=== PATIENT | female | born 1975 | race Two or more races ===

== ENCOUNTER 2020-08-15 10:11 | Inpatient (IN) | payer SELFPAY ==
[2020-08-15] VITALS (10 sets, daily range): BP systolic 117–149; BP diastolic 63–79
[~2020-08-15] VITALS: Ht 162.6 cm; Wt 59.5 kg
--- NOTE | 2020-08-15 11:32 | RAD ---
EXAMINATION: US PELVIS W/TV, 08/15/2020 10:53 AM CLINICAL INDICATION: Heavy vaginal TECHNIQUE: Grayscale, color and spectral Doppler ultrasound images of the pelvis via transabdominal a nd transvaginal approach. COMPARISON: None. FINDINGS: The uterus measures 11.1 x 5.7 x 5.3 cm and is retroverted. The endometrial stripe measures 10 mm in thickness, within normal limits in a premenopausal woman. There are at least 2 myometrial masses in t he fundus consistent with fibroids, one measuring 2.3 x 1.9 x 1.6 cm and the other measuring 1.7 x 1. 5 x 1.1 cm. The right ovary measures 2.8 x 1.3 x 1.3 cm. The left ovary measures 3.7 x 2.4 x 2.3 cm. There is nor mal ovarian blood flow bilaterally. There are anechoic physiologic cysts in the left ovary measuring up to 1.5 cm. No adnexal mass or free fluid. IMPRESSION: At least 2 fibroids in the uterus, the largest measuring 2.3 cm. Electronically signed by: Lucia Romero MD (08/15/2020 11:29 AM) [id number]
[2020-08-15 11:41] LABS: CALCIUM 8.5 mg/dL (8.5-10.1); CREATININE 0.8 mg/dL (0.6-1.0); GFR 77.6; POTASSIUM 3.8 mmol/L (3.5-5.1)
[2020-08-15 11:47] LABS: ALBUMIN 4.3 g/dL (3.4-5.0); ALBUMIN/GLOBULIN RATIO 1.3 (1.0-1.7); TOTAL BILIRUBIN 0.4 mg/dL (0.2-1.0); TOTAL PROTEIN 7.6 g/dL (6.4-8.2)
[2020-08-15 11:56] LABS: BASO % 1 % (0-3); EOS # 0.4 x10^3/uL (0.0-0.7); EOS % 6 % (0-3); HEMATOCRIT 23.6 % (36.0-47.0); LYMPH # 1.9 x10^3/uL (1.0-4.8); LYMPH % 28 % (24-48); MEAN CORPUSCULAR HEMOGLOBIN 13 pg (25-35); MEAN CORPUSCULAR HGB CONC 27 g/dL (31-37); MEAN CORPUSCULAR VOLUME 49 fL (79-100); MONO # 0.5 x10^3/uL (0.0-1.1); MONO % 7 % (0-9); NEUT # 4.1 x10^3/uL (1.8-7.7); NEUT % 59 % (31-73); PLATELET COUNT 314 x10^3/uL (140-400); RED BLOOD COUNT 4.84 x10^6/uL (3.50-5.40); RED CELL DISTRIBUTION WIDTH 21.4 % (11.5-14.5); WHITE BLOOD COUNT 6.9 x10^3/uL (4.0-11.0)
[2020-08-15 11:59] LABS: HEMOGLOBIN 6.4 g/dL (12.0-15.5)
--- NOTE | 2020-08-15 12:01 | PHYS DOC ---
Past Medical History Past Medical History: No Pertinent History Past Surgical History: No Surgical History Smoking Status: Never Smoker Alcohol Use: None General Adult EDM: Chief Complaint: ABNORMAL LABS HPI: HPI: Patient is a 44 year old female with no significant medical history presents to the ED today for anemia. Patient was evaluated at a local clinic for dizziness and heavy bleeding last week. Her hemoglobin on August 09, 2020 was 6.5 with hematocrit of 24.8. It was repeated on 12/11/2020 and was noted to be 6.2 with hematocrit of 24.1. Patient reports heavy bleeding for years that has gotten worse. Her menstrual cycle began August 12, 2020 and she is still bleeding. Denies any abdominal pain. Denies any nausea vomiting. Patient desires to have transfusion from a family member which I informed her is not possible in the ED setting Patient is English-speaking only and interpretation was provided by the catheter Review of Systems: Review of Systems: Constitutional: Denies fever or chills. [] Eyes: Denies change in visual acuity. [] HENT: Denies nasal congestion or sore throat. [] Respiratory: Denies cough or shortness of breath. [] Cardiovascular: Denies chest pain or edema. [] GI: Reports heavy bleeding. Denies abdominal pain, nausea, vomiting, bloody stools or diarrhea. [] : Denies dysuria. [] Musculoskeletal: Denies back pain or joint pain. [] Integument: Denies rash. [] Neurologic: Denies headache, focal weakness or sensory changes. [] Psychiatric: Denies depression or anxiety. [] Heart Score: C/O Chest Pain: N/A Risk Factors: Risk Factors: DM, Current or recent (<one month) smoker, HTN, HLP, family history of CAD, obesity. Risk Scores: Score 0 - 3: 2.5% MACE over next 6 weeks - Discharge Home Score 4 - 6: 20.3% MACE over next 6 weeks - Admit for Clinical Observation Score 7 - 10: 72.7% MACE over next 6 weeks - Early Invasive Strategies Allergies: Allergies: Allergies Coded Allergies Type Severity Reaction Last Updated Verified No Known Drug Allergies 08/15/20 No Physical Exam: PE: Constitutional: Well developed, well nourished, no acute distress, non-toxic appearance. [] HENT: Normocephalic, atraumatic, bilateral external ears normal, oropharynx moist, no oral exudates, nose normal. [] Eyes: PERRLA, EOMI, conjunctiva normal, no discharge. [] Neck: Normal range of motion, no tenderness, supple, no stridor. [] Cardiovascular:Heart rate regular rhythm, no murmur [] Lungs & Thorax: Bilateral breath sounds clear to auscultation [] Abdomen: Bowel sounds normal, soft, no tenderness, no masses, no pulsatile masses. [] Skin: Warm, dry, no erythema, no rash. [] Back: No tenderness, no CVA tenderness. [] Extremities: No tenderness, no cyanosis, no clubbing, ROM intact, no edema. [] Neurologic: Alert and oriented X 3, normal motor function, normal sensory funct ion, no focal deficits noted. [] Psychologic: Affect normal, judgement normal, mood normal. [] Current Patient Data: Labs: Laboratory Tests Test 08/15/20 11:11 08/15/20 11:15 POC Urine HCG, Qualitative Hcg negative (Negative) Sodium Level 143 mmol/L (136-145) Potassium Level 3.8 mmol/L (3.5-5.1) Chloride Level 107 mmol/L (98-107) Carbon Dioxide Level 25 mmol/L (21-32) Anion Gap 11 (6-14) Blood Urea Nitrogen 9 mg/dL (7-20) Creatinine 0.8 mg/dL (0.6-1.0) Estimated GFR (Cockcroft-Gault) 77.6 BUN/Creatinine Ratio 11 (6-20) Glucose Level 106 mg/dL (70-99) H Calcium Level 8.5 mg/dL (8.5-10.1) Total Bilirubin 0.4 mg/dL (0.2-1.0) Aspartate Amino Transferase (AST) 6 U/L (15-37) L Alanine Aminotransferase (ALT) 16 U/L (14-59) Alkaline Phosphatase 79 U/L (46-116) Total Protein 7.6 g/dL (6.4-8.2) Albumin 4.3 g/dL (3.4-5.0) Albumin/Globulin Ratio 1.3 (1.0-1.7) Laboratory Tests 08/15/20 11:15 Vital Signs: Vital Signs Date Time Temp Pulse Resp B/P (MAP) Pulse Ox O2 Delivery O2 Flow Rate FiO2 08/15/20 10:35 98.2 89 22 132/63 (86) 100 Room Air 98.2 EKG: EKG: [] Radiology/Procedures: Radiology/Procedures: []PROCEDURE: PELVIS W/TV EXAMINATION: US PELVIS W/TV, 08/15/2020 10:53 AM CLINICAL INDICATION: Heavy vaginal TECHNIQUE: Grayscale, color and spectral Doppler ultrasound images of the pelvis via transabdominal and transvaginal approach. COMPARISON: None. FINDINGS: The uterus measures 11.1 x 5.7 x 5.3 cm and is retroverted. The endometrial stripe measures 10 mm in thickness, within normal limits in a premenopausal woman. There are at least 2 myometrial masses in the fundus consistent with fib roids, one measuring 2.3 x 1.9 x 1.6 cm and the other measuring 1.7 x 1.5 x 1.1 cm. The right ovary measures 2.8 x 1.3 x 1.3 cm. The left ovary measures 3.7 x 2.4 x 2.3 cm. There is normal ovarian blood flow bilaterally. There are anechoic physiologic cysts in the left ovary measuring up to 1.5 cm. No adnexal mass or free fluid. IMPRESSION: At least 2 fibroids in the uterus, the largest measuring 2.3 cm. Electronically signed by: Lucia Romero MD (08/15/2020 11:29 AM) [id number] DICTATED and SIGNED BY: LUCIA ROMERO MD DATE: 08/15/20 [id number] 0 Course & Med Decision Making: Course & Med Decision Making Pertinent Labs and Imaging studies reviewed. (See chart for details) This is a 44-year-old female patient presenting to the ED today for anemia. Hemoglobin was 6.2 with hematocrit of 24.1 on August 11, 2020. Heavy bleeding as the source of her anemia. Pelvic ultrasound noted for uterine fibroids Hemoglobin today is 6.4 with HCT 23.6 blood transfusion ordered. Spoke with Dr. Balderas who accepted patient for admission Routine consult placed for [employer] MANAGER Enrique Disclaimer: Enrique Disclaimer: This electronic medical record was generated, in whole or in part, using a voice recognition dictation system. Departure Departure Impression: Primary Impression: Anemia Qualified Codes: D50.0 - Iron deficiency anemia secondary to blood loss (chronic) Additional Impression: Fibroids Disposition: 09 ADMITTED INPATIENT Condition: STABLE Referrals: NO PCP (PCP) PILLO GE APRN Aug 15, 2020 12:01
[2020-08-15 12:12] LABS: BILIRUBIN,URINE NEGATIVE (NEG); CLARITY,URINE CLEAR; COLOR,URINE YELLOW; NITRITE,URINE NEGATIVE (NEG); PROTEIN,URINE NEGATIVE (NEG-TRACE)
[2020-08-15 12:21] LABS: RBC,URINE TNTC /HPF (0-2); WBC,URINE OCC /HPF (0-4)
[2020-08-15 12:22] LABS: BACTERIA,URINE 0 /HPF (0-FEW)
[2020-08-15] MEDS ORDERED: ONDANSETRON PF 4 MG/2 ML VIAL. IV PRN (13:00)
[2020-08-15] MEDS ORDERED: ACETAMINOPHEN 325 MG TABLET. PO PRN ×2 (13:00→13:45)
[2020-08-15] MEDS ORDERED: MORPHINE SULFATE 2 MG/ML VIAL. IV PRN (13:45)
[2020-08-15] MEDS ORDERED: CALCIUM CARBONATE 500 MG TAB.CHEW PO PRN (13:45)
[2020-08-15] MEDS ORDERED: MAG HYDROX/ALUMINUM HYD/SIMETH 30 ML ORAL.SUSP PO PRN (13:45)
[2020-08-15] MEDS ORDERED: ZOLPIDEM 5 MG TABLET. PO PRN (13:45)
[2020-08-15] MEDS ORDERED: MAGNESIUM HYDROXIDE 2,400 MG/30 ML ORAL.SUSP. PO PRN (13:45)
[2020-08-15] MEDS ORDERED: BISACODYL 10 MG SUPP.RECT. PR PRN (13:45)
[2020-08-15] MEDS ORDERED: ONDANSETRON PF 4 MG/2 ML VIAL. IVP PRN (13:45)
[2020-08-15 13:47] LABS: ANISOCYTOSIS MOD; BIZZARE CELLS FEW; HYPOCHROMIA MARKED; MICROCYTOSIS MARKED; OVALOCYTES MOD; PLT ESTIMATE ADEQUATE (ADEQUATE); POLYCHROMASIA SLIGHT; TEAR DROP CELLS FEW
--- NOTE | 2020-08-15 13:54 | PDOC1 ---
History and Physical Date of Admission Date of Admission DATE: 08/15/20 TIME: 13:46 Identification/Chief Complaint Chief Complaint Anemia Source Source: Chart review, Patient History of Present Illness History of Present Illness Patient is a 44-year-old female with past medical history uterine fibroids, dysfunctional uterine bleeding, who presents to the ED due to concerns of anemia. She was evaluated by a local clinic due to heavy bleeding last week. At that time labs reportedly showed hemoglobin 6.5 and hematocrit 24.8. Patient has heavy vaginal bleeding over several years. Her menstrual cycle began 08/12/2020 and she states she is still having vaginal bleeding. She denies any abdominal pain, nausea, or vomiting. Patient is Kazakh-speaking only. Will admit for further medical management. Past Medical History Past Medical History Dysfunctional uterine bleeding, uterine fibroids, anemia Past Surgical History Past Surgical History Reviewed with patient but denies any surgical history Family History Family History Reviewed with patient but denies any significant family history Social History Smoke: No ALCOHOL: none Drugs: None Current Problem List Problem List Problems Medical Problems: (1) Anemia Status: Acute (2) Fibroids Status: Acute Current Medications Current Medications Current Medications Ondansetron HCl (Zofran) 4 mg PRN Q8HRS PRN IV NAUSEA/VOMITING; Start 08/15/20 at 13:00; Stop 08/16/20 at 12:59 Acetaminophen (Tylenol) 650 mg PRN Q4HRS PRN PO FEVER > 100.3'F; Start 08/15/20 at 13:00; Stop 08/16/20 at 12:59 Allergies Allergies: Coded Allergies: No Known Drug Allergies (Unverified , 08/15/20) ROS Review of System GENERAL: No history of weight change, weakness or fevers. SKIN: No bruising, hair changes or rashes. EYES: No blurred, double or loss of vision. NOSE AND THROAT: No history of nosebleeds, hoarseness or sore throat. HEART: Denies chest pain, denies palpitations. LUNGS: Denies cough, hemoptysis, wheezing or shortness of breath. GASTROINTESTINAL: Denies nausea, vomiting, abdominal pain. GENITOURINARY: Vaginal bleeding. Denies dysuria, frequency, urgency, hematuria. NEUROLOGIC: Denies history of numbness, tingling, tremor or weakness. PSYCHIATRIC: Denies anxiety, denies depression. ENDOCRINE: No history of heat or cold intolerance, polyuria or polydipsia. EXTREMITIES: Denies muscle weakness, joint pain, pain on walking or stiffness. Physical Exam Physical Exam General: Alert, Oriented X3, Cooperative, No acute distress HEENT: PERRLA, EOMI Lungs: Clear to auscultation, Normal air movement Heart: RRR, no murmurs Cardiovascular: S1, S2 Abdomen: Normal bowel sounds, Soft, No tenderness Extremities: No clubbing, No cyanosis Skin: No rashes, No significant lesion Neuro: Normal speech, Normal tone, Sensation intact Psych/Mental Status: Mental status NL, Mood NL Vitals Vitals Vital Signs Date Time Temp Pulse Resp B/P (MAP) Pulse Ox O2 Delivery O2 Flow Rate FiO2 08/15/20 10:35 98.2 89 22 132/63 (86) 100 Room Air 98.2 Labs Labs Laboratory Tests Test 08/15/20 11:03 08/15/20 11:11 08/15/20 11:15 Urine Collection Type Unknown Urine Color Yellow Urine Clarity Clear Urine pH 6.0 (<5.0-8.0) Urine Specific [place] 1.015 (1.000-1.030) Urine Protein Negative mg/dL (NEG-TRACE) Urine Glucose (UA) Negative mg/dL (NEG) Urine Ketones (Stick) Negative mg/dL (NEG) Urine Blood Large (NEG) Urine Nitrite Negative (NEG) Urine Bilirubin Negative (NEG) Urine Urobilinogen Dipstick 1.0 mg/dL (0.2 mg/dL) Urine Leukocyte Esterase Trace (NEG) Urine RBC Tntc /HPF (0-2) Urine WBC Occ /HPF (0-4) Urine Bacteria 0 /HPF (0-FEW) Bedside Urine HCG, Qualitative Hcg negative (Negative) White Blood Count 6.9 x10^3/uL (4.0-11.0) Red Blood Count 4.84 x10^6/uL (3.50-5.40) Hemoglobin 6.4 g/dL (12.0-15.5) Hematocrit 23.6 % (36.0-47.0) Mean Corpuscular Volume 49 fL (79-100) Mean Corpuscular Hemoglobin 13 pg (25-35) Mean Corpuscular Hemoglobin Concent 27 g/dL (31-37) Red Cell Distribution Width 21.4 % (11.5-14.5) Platelet Count 314 x10^3/uL (140-400) Neutrophils (%) (Auto) 59 % (31-73) Lymphocytes (%) (Auto) 28 % (24-48) Monocytes (%) (Auto) 7 % (0-9) Eosinophils (%) (Auto) 6 % (0-3) Basophils (%) (Auto) 1 % (0-3) Neutrophils # (Auto) 4.1 x10^3/uL (1.8-7.7) Lymphocytes # (Auto) 1.9 x10^3/uL (1.0-4.8) Monocytes # (Auto) 0.5 x10^3/uL (0.0-1.1) Eosinophils # (Auto) 0.4 x10^3/uL (0.0-0.7) Basophils # (Auto) 0.0 x10^3/uL (0.0-0.2) Sodium Level 143 mmol/L (136-145) Potassium Level 3.8 mmol/L (3.5-5.1) Chloride Level 107 mmol/L (98-107) Carbon Dioxide Level 25 mmol/L (21-32) Anion Gap 11 (6-14) Blood Urea Nitrogen 9 mg/dL (7-20) Creatinine 0.8 mg/dL (0.6-1.0) Estimated GFR (Cockcroft-Gault) 77.6 BUN/Creatinine Ratio 11 (6-20) Glucose Level 106 mg/dL (70-99) Calcium Level 8.5 mg/dL (8.5-10.1) Total Bilirubin 0.4 mg/dL (0.2-1.0) Aspartate Amino Transf (AST/SGOT) 6 U/L (15-37) Alanine Aminotransferase (ALT/SGPT) 16 U/L (14-59) Alkaline Phosphatase 79 U/L (46-116) Total Protein 7.6 g/dL (6.4-8.2) Albumin 4.3 g/dL (3.4-5.0) Albumin/Globulin Ratio 1.3 (1.0-1.7) Laboratory Tests Test 08/15/20 11:03 08/15/20 11:11 08/15/20 11:15 Urine Collection Type Unknown Urine Color Yellow Urine Clarity Clear Urine pH 6.0 (<5.0-8.0) Urine Specific [place] 1.015 (1.000-1.030) Urine Protein Negative mg/dL (NEG-TRACE) Urine Glucose (UA) Negative mg/dL (NEG) Urine Ketones (Stick) Negative mg/dL (NEG) Urine Blood Large (NEG) Urine Nitrite Negative (NEG) Urine Bilirubin Negative (NEG) Urine Urobilinogen Dipstick 1.0 mg/dL (0.2 mg/dL) Urine Leukocyte Esterase Trace (NEG) Urine RBC Tntc /HPF (0-2) Urine WBC Occ /HPF (0-4) Urine Bacteria 0 /HPF (0-FEW) Bedside Urine HCG, Qualitative Hcg negative (Negative) White Blood Count 6.9 x10^3/uL (4.0-11.0) Red Blood Count 4.84 x10^6/uL (3.50-5.40) Hemoglobin 6.4 g/dL (12.0-15.5) Hematocrit 23.6 % (36.0-47.0) Mean Corpuscular Volume 49 fL (79-100) Mean Corpuscular Hemoglobin 13 pg (25-35) Mean Corpuscular Hemoglobin Concent 27 g/dL (31-37) Red Cell Distribution Width 21.4 % (11.5-14.5) Platelet Count 314 x10^3/uL (140-400) Neutrophils (%) (Auto) 59 % (31-73) Lymphocytes (%) (Auto) 28 % (24-48) Monocytes (%) (Auto) 7 % (0-9) Eosinophils (%) (Auto) 6 % (0-3) Basophils (%) (Auto) 1 % (0-3) Neutrophils # (Auto) 4.1 x10^3/uL (1.8-7.7) Lymphocytes # (Auto) 1.9 x10^3/uL (1.0-4.8) Monocytes # (Auto) 0.5 x10^3/uL (0.0-1.1) Eosinophils # (Auto) 0.4 x10^3/uL (0.0-0.7) Basophils # (Auto) 0.0 x10^3/uL (0.0-0.2) Sodium Level 143 mmol/L (136-145) Potassium Level 3.8 mmol/L (3.5-5.1) Chloride Level 107 mmol/L (98-107) Carbon Dioxide Level 25 mmol/L (21-32) Anion Gap 11 (6-14) Blood Urea Nitrogen 9 mg/dL (7-20) Creatinine 0.8 mg/dL (0.6-1.0) Estimated GFR (Cockcroft-Gault) 77.6 BUN/Creatinine Ratio 11 (6-20) Glucose Level 106 mg/dL (70-99) Calcium Level 8.5 mg/dL (8.5-10.1) Total Bilirubin 0.4 mg/dL (0.2-1.0) Aspartate Amino Transf (AST/SGOT) 6 U/L (15-37) Alanine Aminotransferase (ALT/SGPT) 16 U/L (14-59) Alkaline Phosphatase 79 U/L (46-116) Total Protein 7.6 g/dL (6.4-8.2) Albumin 4.3 g/dL (3.4-5.0) Albumin/Globulin Ratio 1.3 (1.0-1.7) Images Images PELVIS W/TV EXAMINATION: US PELVIS W/TV, 08/15/2020 10:53 AM CLINICAL INDICATION: Heavy vaginal TECHNIQUE: Grayscale, color and spectral Doppler ultrasound images of the pelvis via transabdominal and transvaginal approach. COMPARISON: None. FINDINGS: The uterus measures 11.1 x 5.7 x 5.3 cm and is retroverted. The endometrial stripe measures 10 mm in thickness, within normal limits in a premenopausal woman. There are at least 2 myometrial masses in the fundus consistent with fibroids, one measuring 2.3 x 1.9 x 1.6 cm and the other measuring 1.7 x 1.5 x 1.1 cm. The right ovary measures 2.8 x 1.3 x 1.3 cm. The left ovary measures 3.7 x 2.4 x 2.3 cm. There is normal ovarian blood flow bilaterally. There are anechoic physiologic cysts in the left ovary measuring up to 1.5 cm. No adnexal mass or free fluid. IMPRESSION: At least 2 fibroids in the uterus, the largest measuring 2.3 cm. VTE Prophylaxis Ordered VTE Prophylaxis Devices: Yes VTE Pharmacological Prophylaxi: No Assessment/Plan Assessment/Plan Dysfunctional uterine bleeding Acute on chronic blood loss anemia Uterine fibroids Plan: Packed red blood cells ordered in the ER. Will follow up on hemoglobin after transfusion and and transfuse as needed for hemoglobin <7. Consultations placed to [facility] [employer] INTERPRETER Supportive care Once stable she may discharge to follow-up outpatient with [facility] [employer] FEN - Cardiac diet PPX - SCDs FULL CODE Dispo - inpatient for above Justifications for Admission Other Justification MARILYN CHAVEZ MD Aug 15, 2020 13:54
--- NOTE | 2020-08-15 16:36 | PDOC2 ---
CONSULT Date of Consult Date of Consult DATE: 08/15/20 TIME: 16:35 Reason for Consult Reason for Consult: Anemia, Fibroids History of Present Illness Reason for Visit: 44y who presented to the ER with dizziness and heavy bleeding for a wk. The pt went to the [facility] this weekend. After her CBC returned they advised her to go to the ER b/c of her anemia. She has had heavy periods for yrs. She has never attempted any tx in the past. She also states that she often has nausea and HAs with her cycyles. Her current period began 3 days ago and is still heavy. In the ER a her Hgb returned at 6.4. She underwent an u/s revealing the following: The uterus measures 11.1 x 5.7 x 5.3 cm and is retroverted. The endometrial stripe measures 10 mm in thickness, within normal limits in a premenopausal woman. There are at least 2 myometrial masses in the fundus consistent with fibroids, one measuring 2.3 x 1.9 x 1.6 cm and the other measuring 1.7 x 1.5 x 1.1 cm. PMH: Denies PSH: Denies Meds: None All: NKDA OBHx: 2 x TSVD, 1 x TSVD (twins) Crystal Slicer: LMP 08/12/20 BTL in 2001 H/o Depo use for ~1yr 12yo / regular SH: no tob, no EtOH FH: mother asthma Social History No ALCOHOL: none Drugs: None Current Problem List Problem List Problems Medical Problems: (1) Anemia Status: Acute (2) Fibroids Status: Acute Current Medications Current Medications Current Medications Ondansetron HCl (Zofran) 4 mg PRN Q8HRS PRN IV NAUSEA/VOMITING; Start 08/15/20 at 13:00; Stop 08/16/20 at 12:59 Acetaminophen (Tylenol) 650 mg PRN Q4HRS PRN PO FEVER > 100.3'F; Start 08/15/20 at 13:00; Stop 08/16/20 at 12:59 Ondansetron HCl (Zofran) 4 mg PRN Q6HRS PRN IVP NAUSEA/VOMITING; Start 08/15/20 at 13:45 Al Hydroxide/Mg Hydroxide (Mylanta Plus Xs) 30 ml PRN Q3HRS PRN PO HEARTBURN / GAS; Start 08/15/20 at 13:45 Calcium Carbonate/ Glycine (Tums) 500 mg PRN Q3HRS PRN PO UPSET STOMACH; Start 08/15/20 at 13:45 Zolpidem Tartrate (Ambien) 5 mg PRN QHS PRN PO INSOMNIA, MAY REPEAT IN 1HR; Start 08/15/20 at 13:45 Morphine Sulfate (Morphine Sulfate) 2 mg PRN Q1HR PRN IV PAIN; Start 08/15/20 at 13:45 Acetaminophen (Tylenol) 650 mg PRN Q6HRS PRN PO Headaches, Temp > 101.5F; Start 08/15/20 at 13:45 Magnesium Hydroxide (Milk Of Magnesia) 2,400 mg PRN Q12HR PRN PO CONSTIPATION; Start 08/15/20 at 13:45 Bisacodyl (Dulcolax Supp) 10 mg PRN DAILY PRN DC CONSTIPATION; Start 08/15/20 at 13:45 Allergies Allergies: Coded Allergies: No Known Drug Allergies (Unverified , 08/15/20) Physical Exam General: Alert, Oriented X3, Cooperative, No acute distress HEENT: PERRLA, Mucous membr. moist/pink Lungs: Clear to auscultation, Normal air movement Heart: Regular rate, Normal S1, Normal S2, No murmurs Abdomen: Normal bowel sounds, Soft, No tenderness, No hepatosplenomegaly, No masses Extremities: No clubbing, No cyanosis, No edema, Normal pulses, No tenderness/swelling Skin: No rashes, No breakdown Neuro: Normal gait, Normal speech, Normal tone, Sensation intact, Reflexes 2+ Psych/Mental Status: Mental status NL, Mood NL Vitals VITALS Vital Signs Date Time Temp Pulse Resp B/P (MAP) Pulse Ox O2 Delivery O2 Flow Rate FiO2 08/15/20 15:09 98.5 86 18 133/63 98.5 08/15/20 10:35 100 Room Air Labs Labs Laboratory Tests Test 08/15/20 11:03 08/15/20 11:11 08/15/20 11:15 Urine Collection Type Unknown Urine Color Yellow Urine Clarity Clear Urine pH 6.0 (<5.0-8.0) Urine Specific [place] 1.015 (1.000-1.030) Urine Protein Negative mg/dL (NEG-TRACE) Urine Glucose (UA) Negative mg/dL (NEG) Urine Ketones (Stick) Negative mg/dL (NEG) Urine Blood Large (NEG) Urine Nitrite Negative (NEG) Urine Bilirubin Negative (NEG) Urine Urobilinogen Dipstick 1.0 mg/dL (0.2 mg/dL) Urine Leukocyte Esterase Trace (NEG) Urine RBC Tntc /HPF (0-2) Urine WBC Occ /HPF (0-4) Urine Bacteria 0 /HPF (0-FEW) Bedside Urine HCG, Qualitative Hcg negative (Negative) White Blood Count 6.9 x10^3/uL (4.0-11.0) Red Blood Count 4.84 x10^6/uL (3.50-5.40) Hemoglobin 6.4 g/dL (12.0-15.5) Hematocrit 23.6 % (36.0-47.0) Mean Corpuscular Volume 49 fL (79-100) Mean Corpuscular Hemoglobin 13 pg (25-35) Mean Corpuscular Hemoglobin Concent 27 g/dL (31-37) Red Cell Distribution Width 21.4 % (11.5-14.5) Platelet Count 314 x10^3/uL (140-400) Neutrophils (%) (Auto) 59 % (31-73) Lymphocytes (%) (Auto) 28 % (24-48) Monocytes (%) (Auto) 7 % (0-9) Eosinophils (%) (Auto) 6 % (0-3) Basophils (%) (Auto) 1 % (0-3) Neutrophils # (Auto) 4.1 x10^3/uL (1.8-7.7) Lymphocytes # (Auto) 1.9 x10^3/uL (1.0-4.8) Monocytes # (Auto) 0.5 x10^3/uL (0.0-1.1) Eosinophils # (Auto) 0.4 x10^3/uL (0.0-0.7) Basophils # (Auto) 0.0 x10^3/uL (0.0-0.2) Platelet Estimate Adequate (ADEQUATE) Large Platelets Few Polychromasia Slight Hypochromasia Marked Basophilic Stippling Present Anisocytosis Mod Microcytosis Marked Macrocytosis Slight Tear Drop Cells Few Ovalocytes Mod RBC Morphology Bizarre Forms Few Sodium Level 143 mmol/L (136-145) Potassium Level 3.8 mmol/L (3.5-5.1) Chloride Level 107 mmol/L (98-107) Carbon Dioxide Level 25 mmol/L (21-32) Anion Gap 11 (6-14) Blood Urea Nitrogen 9 mg/dL (7-20) Creatinine 0.8 mg/dL (0.6-1.0) Estimated GFR (Cockcroft-Gault) 77.6 BUN/Creatinine Ratio 11 (6-20) Glucose Level 106 mg/dL (70-99) Calcium Level 8.5 mg/dL (8.5-10.1) Total Bilirubin 0.4 mg/dL (0.2-1.0) Aspartate Amino Transf (AST/SGOT) 6 U/L (15-37) Alanine Aminotransferase (ALT/SGPT) 16 U/L (14-59) Alkaline Phosphatase 79 U/L (46-116) Total Protein 7.6 g/dL (6.4-8.2) Albumin 4.3 g/dL (3.4-5.0) Albumin/Globulin Ratio 1.3 (1.0-1.7) Laboratory Tests Test 08/15/20 11:03 08/15/20 11:11 08/15/20 11:15 Urine Collection Type Unknown Urine Color Yellow Urine Clarity Clear Urine pH 6.0 (<5.0-8.0) Urine Specific [place] 1.015 (1.000-1.030) Urine Protein Negative mg/dL (NEG-TRACE) Urine Glucose (UA) Negative mg/dL (NEG) Urine Ketones (Stick) Negative mg/dL (NEG) Urine Blood Large (NEG) Urine Nitrite Negative (NEG) Urine Bilirubin Negative (NEG) Urine Urobilinogen Dipstick 1.0 mg/dL (0.2 mg/dL) Urine Leukocyte Esterase Trace (NEG) Urine RBC Tntc /HPF (0-2) Urine WBC Occ /HPF (0-4) Urine Bacteria 0 /HPF (0-FEW) Bedside Urine HCG, Qualitative Hcg negative (Negative) White Blood Count 6.9 x10^3/uL (4.0-11.0) Red Blood Count 4.84 x10^6/uL (3.50-5.40) Hemoglobin 6.4 g/dL (12.0-15.5) Hematocrit 23.6 % (36.0-47.0) Mean Corpuscular Volume 49 fL (79-100) Mean Corpuscular Hemoglobin 13 pg (25-35) Mean Corpuscular Hemoglobin Concent 27 g/dL (31-37) Red Cell Distribution Width 21.4 % (11.5-14.5) Platelet Count 314 x10^3/uL (140-400) Neutrophils (%) (Auto) 59 % (31-73) Lymphocytes (%) (Auto) 28 % (24-48) Monocytes (%) (Auto) 7 % (0-9) Eosinophils (%) (Auto) 6 % (0-3) Basophils (%) (Auto) 1 % (0-3) Neutrophils # (Auto) 4.1 x10^3/uL (1.8-7.7) Lymphocytes # (Auto) 1.9 x10^3/uL (1.0-4.8) Monocytes # (Auto) 0.5 x10^3/uL (0.0-1.1) Eosinophils # (Auto) 0.4 x10^3/uL (0.0-0.7) Basophils # (Auto) 0.0 x10^3/uL (0.0-0.2) Platelet Estimate Adequate (ADEQUATE) Large Platelets Few Polychromasia Slight Hypochromasia Marked Basophilic Stippling Present Anisocytosis Mod Microcytosis Marked Macrocytosis Slight Tear Drop Cells Few Ovalocytes Mod RBC Morphology Bizarre Forms Few Sodium Level 143 mmol/L (136-145) Potassium Level 3.8 mmol/L (3.5-5.1) Chloride Level 107 mmol/L (98-107) Carbon Dioxide Level 25 mmol/L (21-32) Anion Gap 11 (6-14) Blood Urea Nitrogen 9 mg/dL (7-20) Creatinine 0.8 mg/dL (0.6-1.0) Estimated GFR (Cockcroft-Gault) 77.6 BUN/Creatinine Ratio 11 (6-20) Glucose Level 106 mg/dL (70-99) Calcium Level 8.5 mg/dL (8.5-10.1) Total Bilirubin 0.4 mg/dL (0.2-1.0) Aspartate Amino Transf (AST/SGOT) 6 U/L (15-37) Alanine Aminotransferase (ALT/SGPT) 16 U/L (14-59) Alkaline Phosphatase 79 U/L (46-116) Total Protein 7.6 g/dL (6.4-8.2) Albumin 4.3 g/dL (3.4-5.0) Albumin/Globulin Ratio 1.3 (1.0-1.7) Assessment/Plan Assessment/Plan Assessment: 44y with anemia, menorrhagia, and fibroids Recommendations: 1.) Anemia currently receiving a transfusion per hospitalists. Anemia likely 2/2 menorrhagia based on pts hx. 2.) Menorrhagia reports a longstanding hx. Has never attempted medical management. Since currently still bleeding heavy would start Provera 5mg. 3.) Fibroids - ~2 cm in size. 4.) Contraception BTL 5.) Will cont follow DAGO ADAN MD Aug 15, 2020 16:36
[2020-08-15 20:20] LABS: HEMATOCRIT 28.3 % (36.0-47.0); HEMOGLOBIN 8.2 g/dL (12.0-15.5)
[2020-08-16 02:52] VITALS: BP 127/67
[2020-08-16 05:44] LABS: BASO % 0 % (0-3); EOS # 0.4 x10^3/uL (0.0-0.7); EOS % 5 % (0-3); HEMOGLOBIN 8.2 g/dL (12.0-15.5); LYMPH # 2.2 x10^3/uL (1.0-4.8); LYMPH % 29 % (24-48); MEAN CORPUSCULAR HEMOGLOBIN 16 pg (25-35); MEAN CORPUSCULAR HGB CONC 28 g/dL (31-37); MEAN CORPUSCULAR VOLUME 55 fL (79-100); MONO # 0.5 x10^3/uL (0.0-1.1); MONO % 7 % (0-9); NEUT # 4.5 x10^3/uL (1.8-7.7); NEUT % 59 % (31-73); PLATELET COUNT 327 x10^3/uL (140-400); RED BLOOD COUNT 5.25 x10^6/uL (3.50-5.40); RED CELL DISTRIBUTION WIDTH 21.5 % (11.5-14.5); WHITE BLOOD COUNT 7.7 x10^3/uL (4.0-11.0)
[2020-08-16 07:00] VITALS: BP 122/62
--- NOTE | 2020-08-16 10:05 | PDOC ---
PROGRESS NOTES Date of Service: DATE: 08/16/20 TIME: 10:05 Chief Complaint Chief Complaint VTE Prophylaxis Ordered VTE Prophylaxis Devices: Yes VTE Pharmacological Prophylaxi: No Assessment/Plan Assessment/Plan Dysfunctional uterine bleeding Acute on chronic blood loss anemia Uterine fibroids ON us 2 fibroids in the uterus, the largest measuring 2.3 cm. Plan: Packed red blood cells ordered in the ER. Will follow up on hemoglobin after transfusion and and transfuse as needed for hemoglobin <7. Consultations placed to [facility] Once stable she may discharge to follow-up outpatient with [facility] - Cardiac diet PPX - SCDs FULL CODE Dispo - inpatient for above Justifications for Admission Justifications for Admission Other Justification History of Present Illness History of Present Illness Identification/Chief Complaint Chief Complaint Anemia Source Source: Chart review, Patient History of Present Illness History of Present Illness Patient is a 44-year-old female with past medical history uterine fibroids, dysfunctional uterine bleeding, who presents to the ED due to concerns of anemia. She was evaluated by a local clinic due to heavy bleeding last week. At that time labs reportedly showed hemoglobin 6.5 and hematocrit 24.8. Patient has heavy vaginal bleeding over several years. Her menstrual cycle began 08/12/2020 and she states she is still having vaginal bleeding. She denies any abdominal pain, nausea, or vomiting. Patient is Khmer-speaking only. Will admit for further medical management. Past Medical History Past Medical History Dysfunctional uterine bleeding, uterine fibroids, anemia Past Surgical History Past Surgical History Reviewed with patient but denies any surgical history Family History Family History Reviewed with patient but denies any significant family history Social History Smoke: No ALCOHOL: none Drugs: None Current Problem List Problem List Problems Medical Problems: (1) Anemia Status: Acute (2) Fibroids Status: Acute Current Medications Current Medications Current Medications Ondansetron HCl (Zofran) 4 mg PRN Q8HRS PRN IV NAUSEA/VOMITING; Start 08/15/20 at 13:00; Stop 08/16/20 at 12:59 Acetaminophen (Tylenol) 650 mg PRN Q4HRS PRN PO FEVER > 100.3'F; Start 08/15/20 at 13:00; Stop 08/16/20 at 12:59 Allergies Allergies: Coded Allergies: No Known Drug Allergies (Unverified , 08/15/20) ROS Review of System GENERAL: No history of weight change, weakness or fevers. SKIN: No bruising, hair changes or rashes. EYES: No blurred, double or loss of vision. NOSE AND THROAT: No history of nosebleeds, hoarseness or sore throat. HEART: Denies chest pain, denies palpitations. LUNGS: Denies cough, hemoptysis, wheezing or shortness of breath. GASTROINTESTINAL: Denies nausea, vomiting, abdominal pain. GENITOURINARY: Vaginal bleeding. Denies dysuria, frequency, urgency, hematuria. NEUROLOGIC: Denies history of numbness, tingling, tremor or weakness. PSYCHIATRIC: Denies anxiety, denies depression. ENDOCRINE: No history of heat or cold intolerance, polyuria or polydipsia. EXTREMITIES: Denies muscle weakness, joint pain, pain on walking or stiffness. - LESS BLEEDING D/W RN Dysfunctional uterine bleeding Acute on chronic blood loss anemia Uterine fibroids ON us 2 fibroids in the uterus, the largest measuring 2.3 cm. Vitals Vitals Vital Signs Date Time Temp Pulse Resp B/P (MAP) Pulse Ox O2 Delivery O2 Flow Rate FiO2 08/16/20 07:00 97.6 76 17 122/62 (82) 99 Room Air 97.6 Physical Exam General: Alert, Oriented X3, Cooperative, No acute distress Heart: Regular rate, Normal S1, Normal S2, No murmurs Lungs: Clear Abdomen: Normal bowel sounds, Soft, No tenderness, No hepatosplenomegaly, No masses Extremities: No clubbing, No cyanosis, No edema, Normal pulses, No tenderness/swelling Skin: No rashes, No breakdown Labs LABS PATIENT: CARRIE BOBACCOUNT: [id number] : 1975 LOCATION: ER AGE: 44 SEX: F EXAM STATUS: REG ER ORD. PHYSICIAN: PILLO GE APRN REASON: heavy vag bleeding PROCEDURE: PELVIS W/TV EXAMINATION: US PELVIS W/TV, 08/15/2020 10:53 AM CLINICAL INDICATION: Heavy vaginal TECHNIQUE: Grayscale, color and spectral Doppler ultrasound images of the pelvis via transabdominal and transvaginal approach. COMPARISON: None. FINDINGS: The uterus measures 11.1 x 5.7 x 5.3 cm and is retroverted. The endometrial stripe measures 10 mm in thickness, within normal limits in a premenopausal woman. There are at least 2 myometrial masses in the fundus consistent with fibroids, one measuring 2.3 x 1.9 x 1.6 cm and the other measuring 1.7 x 1.5 x 1.1 cm. The right ovary measures 2.8 x 1.3 x 1.3 cm. The left ovary measures 3.7 x 2.4 x 2.3 cm. There is normal ovarian blood flow bilaterally. There are anechoic physiologic cysts in the left ovary measuring up to 1.5 cm. No adnexal mass or free fluid. IMPRESSION: At least 2 fibroids in the uterus, the largest measuring 2.3 cm. Electronically signed by: Lucia Romero MD (08/15/2020 11:29 AM) [id number] DICTATED and SIGNED BY: LUCIA ROMERO MD DATE: 08/15/20 [id number] Laboratory Tests Test 08/15/20 11:03 08/15/20 11:11 08/15/20 11:15 08/15/20 20:05 Urine Collection Type Unknown Urine Color Yellow Urine Clarity Clear Urine pH 6.0 (<5.0-8.0) Urine Specific [place] 1.015 (1.000-1.030) Urine Protein Negative mg/dL (NEG-TRACE) Urine Glucose (UA) Negative mg/dL (NEG) Urine Ketones (Stick) Negative mg/dL (NEG) Urine Blood Large (NEG) Urine Nitrite Negative (NEG) Urine Bilirubin Negative (NEG) Urine Urobilinogen Dipstick 1.0 mg/dL (0.2 mg/dL) Urine Leukocyte Esterase Trace (NEG) Urine RBC Tntc /HPF (0-2) Urine WBC Occ /HPF (0-4) Urine Bacteria 0 /HPF (0-FEW) Bedside Urine HCG, Qualitative Hcg negative (Negative) White Blood Count 6.9 x10^3/uL (4.0-11.0) Red Blood Count 4.84 x10^6/uL (3.50-5.40) Hemoglobin 6.4 g/dL (12.0-15.5) 8.2 g/dL (12.0-15.5) Hematocrit 23.6 % (36.0-47.0) 28.3 % (36.0-47.0) Mean Corpuscular Volume 49 fL (79-100) Mean Corpuscular Hemoglobin 13 pg (25-35) Mean Corpuscular Hemoglobin Concent 27 g/dL (31-37) 29 g/dL (31-37) Red Cell Distribution Width 21.4 % (11.5-14.5) Platelet Count 314 x10^3/uL (140-400) Neutrophils (%) (Auto) 59 % (31-73) Lymphocytes (%) (Auto) 28 % (24-48) Monocytes (%) (Auto) 7 % (0-9) Eosinophils (%) (Auto) 6 % (0-3) Basophils (%) (Auto) 1 % (0-3) Neutrophils # (Auto) 4.1 x10^3/uL (1.8-7.7) Lymphocytes # (Auto) 1.9 x10^3/uL (1.0-4.8) Monocytes # (Auto) 0.5 x10^3/uL (0.0-1.1) Eosinophils # (Auto) 0.4 x10^3/uL (0.0-0.7) Basophils # (Auto) 0.0 x10^3/uL (0.0-0.2) Platelet Estimate Adequate (ADEQUATE) Large Platelets Few Polychromasia Slight Hypochromasia Marked Basophilic Stippling Present Anisocytosis Mod Microcytosis Marked Macrocytosis Slight Tear Drop Cells Few Ovalocytes Mod RBC Morphology Bizarre Forms Few Sodium Level 143 mmol/L (136-145) Potassium Level 3.8 mmol/L (3.5-5.1) Chloride Level 107 mmol/L (98-107) Carbon Dioxide Level 25 mmol/L (21-32) Anion Gap 11 (6-14) Blood Urea Nitrogen 9 mg/dL (7-20) Creatinine 0.8 mg/dL (0.6-1.0) Estimated GFR (Cockcroft-Gault) 77.6 BUN/Creatinine Ratio 11 (6-20) Glucose Level 106 mg/dL (70-99) Calcium Level 8.5 mg/dL (8.5-10.1) Total Bilirubin 0.4 mg/dL (0.2-1.0) Aspartate Amino Transf (AST/SGOT) 6 U/L (15-37) Alanine Aminotransferase (ALT/SGPT) 16 U/L (14-59) Alkaline Phosphatase 79 U/L (46-116) Total Protein 7.6 g/dL (6.4-8.2) Albumin 4.3 g/dL (3.4-5.0) Albumin/Globulin Ratio 1.3 (1.0-1.7) Test 08/16/20 05:00 White Blood Count 7.7 x10^3/uL (4.0-11.0) Red Blood Count 5.25 x10^6/uL (3.50-5.40) Hemoglobin 8.2 g/dL (12.0-15.5) Hematocrit 29.0 % (36.0-47.0) Mean Corpuscular Volume 55 fL (79-100) Mean Corpuscular Hemoglobin 16 pg (25-35) Mean Corpuscular Hemoglobin Concent 28 g/dL (31-37) Red Cell Distribution Width 21.5 % (11.5-14.5) Platelet Count 327 x10^3/uL (140-400) Neutrophils (%) (Auto) 59 % (31-73) Lymphocytes (%) (Auto) 29 % (24-48) Monocytes (%) (Auto) 7 % (0-9) Eosinophils (%) (Auto) 5 % (0-3) Basophils (%) (Auto) 0 % (0-3) Neutrophils # (Auto) 4.5 x10^3/uL (1.8-7.7) Lymphocytes # (Auto) 2.2 x10^3/uL (1.0-4.8) Monocytes # (Auto) 0.5 x10^3/uL (0.0-1.1) Eosinophils # (Auto) 0.4 x10^3/uL (0.0-0.7) Basophils # (Auto) 0.0 x10^3/uL (0.0-0.2) Assessment and Plan Assessmemt and Plan Problems Medical Problems: (1) Anemia Status: Acute (2) Fibroids Status: Acute Comment Review of Relevant I have reviewed the following items dave (where applicable) has been applied. Labs Laboratory Tests Test 08/15/20 11:03 08/15/20 11:11 08/15/20 11:15 08/15/20 20:05 Urine Collection Type Unknown Urine Color Yellow Urine Clarity Clear Urine pH 6.0 (<5.0-8.0) Urine Specific [place] 1.015 (1.000-1.030) Urine Protein Negative mg/dL (NEG-TRACE) Urine Glucose (UA) Negative mg/dL (NEG) Urine Ketones (Stick) Negative mg/dL (NEG) Urine Blood Large (NEG) Urine Nitrite Negative (NEG) Urine Bilirubin Negative (NEG) Urine Urobilinogen Dipstick 1.0 mg/dL (0.2 mg/dL) Urine Leukocyte Esterase Trace (NEG) Urine RBC Tntc /HPF (0-2) Urine WBC Occ /HPF (0-4) Urine Bacteria 0 /HPF (0-FEW) Bedside Urine HCG, Qualitative Hcg negative (Negative) White Blood Count 6.9 x10^3/uL (4.0-11.0) Red Blood Count 4.84 x10^6/uL (3.50-5.40) Hemoglobin 6.4 g/dL (12.0-15.5) 8.2 g/dL (12.0-15.5) Hematocrit 23.6 % (36.0-47.0) 28.3 % (36.0-47.0) Mean Corpuscular Volume 49 fL (79-100) Mean Corpuscular Hemoglobin 13 pg (25-35) Mean Corpuscular Hemoglobin Concent 27 g/dL (31-37) 29 g/dL (31-37) Red Cell Distribution Width 21.4 % (11.5-14.5) Platelet Count 314 x10^3/uL (140-400) Neutrophils (%) (Auto) 59 % (31-73) Lymphocytes (%) (Auto) 28 % (24-48) Monocytes (%) (Auto) 7 % (0-9) Eosinophils (%) (Auto) 6 % (0-3) Basophils (%) (Auto) 1 % (0-3) Neutrophils # (Auto) 4.1 x10^3/uL (1.8-7.7) Lymphocytes # (Auto) 1.9 x10^3/uL (1.0-4.8) Monocytes # (Auto) 0.5 x10^3/uL (0.0-1.1) Eosinophils # (Auto) 0.4 x10^3/uL (0.0-0.7) Basophils # (Auto) 0.0 x10^3/uL (0.0-0.2) Platelet Estimate Adequate (ADEQUATE) Large Platelets Few Polychromasia Slight Hypochromasia Marked Basophilic Stippling Present Anisocytosis Mod Microcytosis Marked Macrocytosis Slight Tear Drop Cells Few Ovalocytes Mod RBC Morphology Bizarre Forms Few Sodium Level 143 mmol/L (136-145) Potassium Level 3.8 mmol/L (3.5-5.1) Chloride Level 107 mmol/L (98-107) Carbon Dioxide Level 25 mmol/L (21-32) Anion Gap 11 (6-14) Blood Urea Nitrogen 9 mg/dL (7-20) Creatinine 0.8 mg/dL (0.6-1.0) Estimated GFR (Cockcroft-Gault) 77.6 BUN/Creatinine Ratio 11 (6-20) Glucose Level 106 mg/dL (70-99) Calcium Level 8.5 mg/dL (8.5-10.1) Total Bilirubin 0.4 mg/dL (0.2-1.0) Aspartate Amino Transf (AST/SGOT) 6 U/L (15-37) Alanine Aminotransferase (ALT/SGPT) 16 U/L (14-59) Alkaline Phosphatase 79 U/L (46-116) Total Protein 7.6 g/dL (6.4-8.2) Albumin 4.3 g/dL (3.4-5.0) Albumin/Globulin Ratio 1.3 (1.0-1.7) Test 08/16/20 05:00 White Blood Count 7.7 x10^3/uL (4.0-11.0) Red Blood Count 5.25 x10^6/uL (3.50-5.40) Hemoglobin 8.2 g/dL (12.0-15.5) Hematocrit 29.0 % (36.0-47.0) Mean Corpuscular Volume 55 fL (79-100) Mean Corpuscular Hemoglobin 16 pg (25-35) Mean Corpuscular Hemoglobin Concent 28 g/dL (31-37) Red Cell Distribution Width 21.5 % (11.5-14.5) Platelet Count 327 x10^3/uL (140-400) Neutrophils (%) (Auto) 59 % (31-73) Lymphocytes (%) (Auto) 29 % (24-48) Monocytes (%) (Auto) 7 % (0-9) Eosinophils (%) (Auto) 5 % (0-3) Basophils (%) (Auto) 0 % (0-3) Neutrophils # (Auto) 4.5 x10^3/uL (1.8-7.7) Lymphocytes # (Auto) 2.2 x10^3/uL (1.0-4.8) Monocytes # (Auto) 0.5 x10^3/uL (0.0-1.1) Eosinophils # (Auto) 0.4 x10^3/uL (0.0-0.7) Basophils # (Auto) 0.0 x10^3/uL (0.0-0.2) Laboratory Tests Test 08/15/20 11:03 08/15/20 11:11 08/15/20 11:15 08/15/20 20:05 Urine Collection Type Unknown Urine Color Yellow Urine Clarity Clear Urine pH 6.0 (<5.0-8.0) Urine Specific [place] 1.015 (1.000-1.030) Urine Protein Negative mg/dL (NEG-TRACE) Urine Glucose (UA) Negative mg/dL (NEG) Urine Ketones (Stick) Negative mg/dL (NEG) Urine Blood Large (NEG) Urine Nitrite Negative (NEG) Urine Bilirubin Negative (NEG) Urine Urobilinogen Dipstick 1.0 mg/dL (0.2 mg/dL) Urine Leukocyte Esterase Trace (NEG) Urine RBC Tntc /HPF (0-2) Urine WBC Occ /HPF (0-4) Urine Bacteria 0 /HPF (0-FEW) Bedside Urine HCG, Qualitative Hcg negative (Negative) White Blood Count 6.9 x10^3/uL (4.0-11.0) Red Blood Count 4.84 x10^6/uL (3.50-5.40) Hemoglobin 6.4 g/dL (12.0-15.5) 8.2 g/dL (12.0-15.5) Hematocrit 23.6 % (36.0-47.0) 28.3 % (36.0-47.0) Mean Corpuscular Volume 49 fL (79-100) Mean Corpuscular Hemoglobin 13 pg (25-35) Mean Corpuscular Hemoglobin Concent 27 g/dL (31-37) 29 g/dL (31-37) Red Cell Distribution Width 21.4 % (11.5-14.5) Platelet Count 314 x10^3/uL (140-400) Neutrophils (%) (Auto) 59 % (31-73) Lymphocytes (%) (Auto) 28 % (24-48) Monocytes (%) (Auto) 7 % (0-9) Eosinophils (%) (Auto) 6 % (0-3) Basophils (%) (Auto) 1 % (0-3) Neutrophils # (Auto) 4.1 x10^3/uL (1.8-7.7) Lymphocytes # (Auto) 1.9 x10^3/uL (1.0-4.8) Monocytes # (Auto) 0.5 x10^3/uL (0.0-1.1) Eosinophils # (Auto) 0.4 x10^3/uL (0.0-0.7) Basophils # (Auto) 0.0 x10^3/uL (0.0-0.2) Platelet Estimate Adequate (ADEQUATE) Large Platelets Few Polychromasia Slight Hypochromasia Marked Basophilic Stippling Present Anisocytosis Mod Microcytosis Marked Macrocytosis Slight Tear Drop Cells Few Ovalocytes Mod RBC Morphology Bizarre Forms Few Sodium Level 143 mmol/L (136-145) Potassium Level 3.8 mmol/L (3.5-5.1) Chloride Level 107 mmol/L (98-107) Carbon Dioxide Level 25 mmol/L (21-32) Anion Gap 11 (6-14) Blood Urea Nitrogen 9 mg/dL (7-20) Creatinine 0.8 mg/dL (0.6-1.0) Estimated GFR (Cockcroft-Gault) 77.6 BUN/Creatinine Ratio 11 (6-20) Glucose Level 106 mg/dL (70-99) Calcium Level 8.5 mg/dL (8.5-10.1) Total Bilirubin 0.4 mg/dL (0.2-1.0) Aspartate Amino Transf (AST/SGOT) 6 U/L (15-37) Alanine Aminotransferase (ALT/SGPT) 16 U/L (14-59) Alkaline Phosphatase 79 U/L (46-116) Total Protein 7.6 g/dL (6.4-8.2) Albumin 4.3 g/dL (3.4-5.0) Albumin/Globulin Ratio 1.3 (1.0-1.7) Test 08/16/20 05:00 White Blood Count 7.7 x10^3/uL (4.0-11.0) Red Blood Count 5.25 x10^6/uL (3.50-5.40) Hemoglobin 8.2 g/dL (12.0-15.5) Hematocrit 29.0 % (36.0-47.0) Mean Corpuscular Volume 55 fL (79-100) Mean Corpuscular Hemoglobin 16 pg (25-35) Mean Corpuscular Hemoglobin Concent 28 g/dL (31-37) Red Cell Distribution Width 21.5 % (11.5-14.5) Platelet Count 327 x10^3/uL (140-400) Neutrophils (%) (Auto) 59 % (31-73) Lymphocytes (%) (Auto) 29 % (24-48) Monocytes (%) (Auto) 7 % (0-9) Eosinophils (%) (Auto) 5 % (0-3) Basophils (%) (Auto) 0 % (0-3) Neutrophils # (Auto) 4.5 x10^3/uL (1.8-7.7) Lymphocytes # (Auto) 2.2 x10^3/uL (1.0-4.8) Monocytes # (Auto) 0.5 x10^3/uL (0.0-1.1) Eosinophils # (Auto) 0.4 x10^3/uL (0.0-0.7) Basophils # (Auto) 0.0 x10^3/uL (0.0-0.2) Microbiology 08/15/20 Urine Culture - Final, Complete Medications Current Medications Ondansetron HCl (Zofran) 4 mg PRN Q8HRS PRN IV NAUSEA/VOMITING; Start 08/15/20 at 13:00; Stop 08/16/20 at 09:09; Status DC Acetaminophen (Tylenol) 650 mg PRN Q4HRS PRN PO FEVER > 100.3'F; Start 08/15/20 at 13:00; Stop 08/16/20 at 12:59 Ondansetron HCl (Zofran) 4 mg PRN Q6HRS PRN IVP NAUSEA/VOMITING; Start 08/15/20 at 13:45 Al Hydroxide/Mg Hydroxide (Mylanta Plus Xs) 30 ml PRN Q3HRS PRN PO HEARTBURN / GAS; Start 08/15/20 at 13:45 Calcium Carbonate/ Glycine (Tums) 500 mg PRN Q3HRS PRN PO UPSET STOMACH; Start 08/15/20 at 13:45 Zolpidem Tartrate (Ambien) 5 mg PRN QHS PRN PO INSOMNIA, MAY REPEAT IN 1HR; Start 08/15/20 at 13:45 Morphine Sulfate (Morphine Sulfate) 2 mg PRN Q1HR PRN IV PAIN; Start 08/15/20 at 13:45 Acetaminophen (Tylenol) 650 mg PRN Q6HRS PRN PO Headaches, Temp > 101.5F; Start 08/15/20 at 13:45 Magnesium Hydroxide (Milk Of Magnesia) 2,400 mg PRN Q12HR PRN PO CONSTIPATION; Start 08/15/20 at 13:45 Bisacodyl (Dulcolax Supp) 10 mg PRN DAILY PRN AR CONSTIPATION; Start 08/15/20 at 13:45 Medroxyprogesterone Acetate (Provera) 5 mg DAILY PO Last administered on 08/15/20at 19:08; Start 08/15/20 at 17:00 Vitals/I & O Vital Sign - Last 24 Hours 08/15/20 08/15/20 08/15/20 08/15/20 10:35 10:36 11:13 11:36 Temp 98.2 98.2 Pulse 89 86 82 82 Resp 22 34 19 B/P (MAP) 132/63 (86) 132/63 (86) 125/65 (85) 120/70 (87) Pulse Ox 100 100 100 100 O2 Delivery Room Air Room Air Room Air Room Air 08/15/20 08/15/20 08/15/20 08/15/20 12:06 12:36 13:06 13:27 Pulse 76 82 76 76 Resp 19 B/P (MAP) 125/64 (84) 136/63 (87) 129/60 (83) 140/69 (92) Pulse Ox 100 100 100 100 O2 Delivery Room Air Room Air Room Air Room Air 08/15/20 08/15/20 08/15/2021 13:36 13:49 13:51 13:54 Temp 98.0 98.0 Pulse 74 78 75 86 Resp B/P (MAP) 115/57 (76) 136/66 (89) 136/66 135/65 (88) Pulse Ox 100 100 100 O2 Delivery Room Air Room Air Room Air 08/15/20 08/15/20 08/15/20 08/15/20 13:57 13:59 14:04 14:06 Pulse 98 78 76 77 Resp B/P (MAP) 135/65 135/72 (93) 135/78 (97) 135/78 Pulse Ox 100 100 O2 Delivery Room Air Room Air 08/15/20 08/15/20 08/15/20 08/15/20 14:09 14:11 14:24 14:24 Temp 98.3 98.1 98.3 98.1 Pulse 74 73 76 78 Resp B/P (MAP) 125/76 (92) 125/76 117/70 117/70 (86) Pulse Ox 100 100 O2 Delivery Room Air Room Air 08/15/20 08/15/20 08/15/20 08/15/20 14:39 14:40 14:54 14:57 Temp 97.8 97.8 Pulse 84 84 84 79 Resp B/P (MAP) 125/75 (92) 125/75 149/78 (101) 149/78 Pulse Ox 100 100 O2 Delivery Room Air Room Air 08/15/20 08/15/20 08/15/20 08/15/20 15:09 15:09 15:24 15:39 Temp 98.5 98.5 Pulse 86 86 84 82 Resp B/P (MAP) 133/63 (86) 133/63 133/69 (90) 123/65 (84) Pulse Ox 100 100 100 O2 Delivery Room Air Room Air Room Air 08/15/20 08/15/20 08/15/20 08/15/20 15:54 16:09 16:24 19:33 Temp 98.2 98.3 98.2 98.3 Pulse 80 88 82 75 Resp 16 B/P (MAP) 124/70 (88) 144/80 (101) 121/75 (90) 130/70 (90) Pulse Ox 100 100 100 100 O2 Delivery Room Air Room Air Room Air Room Air 08/15/20 08/15/20 08/16/20 08/16/20 20:30 22:41 02:52 07:00 Temp 98.2 97.5 97.6 98.2 97.5 97.6 Pulse 68 72 76 Resp 18 16 17 B/P (MAP) 145/79 (101) 127/67 (87) 122/62 (82) Pulse Ox 100 99 99 O2 Delivery Room Air Room Air Room Air Room Air Intake and Output 08/15/20 08/15/20 08/16/20 15:00 23:00 07:00 Intake Total 345 ml 650 ml 0 ml Balance 345 ml 650 ml 0 ml Justicifation of Admission Dx: Justifications for Admission: Justification of Admission Dx: Yes Comments: MARKED BLOOD LOSS JEMAL SHARP MD Aug 16, 2020 10:05
--- NOTE | 2020-08-16 10:09 | PDOC ---
[facility] RO[facility] PROGRESS NOTE Date of Service: DATE: 08/16/20 TIME: 10:08 Subjective: Pt states bleeding has stopped. Discussed the need for a terminal supervisor plan to prevent this from occurring again. Objective: Vital Signs: Vital Signs Date Time Temp Pulse Resp B/P (MAP) Pulse Ox O2 Delivery O2 Flow Rate FiO2 08/15/20 10:35 98.2 89 22 132/63 (86) 100 Room Air 98.2 Vital Signs Date Time Temp Pulse Resp B/P (MAP) Pulse Ox O2 Delivery O2 Flow Rate FiO2 08/16/20 07:00 97.6 76 17 122/62 (82) 99 Room Air 97.6 Labs: Laboratory Tests Test 08/15/20 11:03 08/15/20 11:11 08/15/20 11:15 08/15/20 20:05 Urine Collection Type Unknown Urine Color Yellow Urine Clarity Clear Urine pH 6.0 (<5.0-8.0) Urine Specific [place] 1.015 (1.000-1.030) Urine Protein Negative mg/dL (NEG-TRACE) Urine Glucose (UA) Negative mg/dL (NEG) Urine Ketones (Stick) Negative mg/dL (NEG) Urine Blood Large (NEG) Urine Nitrite Negative (NEG) Urine Bilirubin Negative (NEG) Urine Urobilinogen Dipstick 1.0 mg/dL (0.2 mg/dL) Urine Leukocyte Esterase Trace (NEG) Urine RBC Tntc /HPF (0-2) Urine WBC Occ /HPF (0-4) Urine Bacteria 0 /HPF (0-FEW) POC Urine HCG, Qualitative Hcg negative (Negative) White Blood Count 6.9 x10^3/uL (4.0-11.0) Red Blood Count 4.84 x10^6/uL (3.50-5.40) Hemoglobin 6.4 g/dL (12.0-15.5) *L 8.2 g/dL (12.0-15.5) L Hematocrit 23.6 % (36.0-47.0) L 28.3 % (36.0-47.0) L Mean Corpuscular Volume 49 fL (79-100) L Mean Corpuscular Hemoglobin 13 pg (25-35) L Mean Corpuscular Hemoglobin Concent 27 g/dL (31-37) L 29 g/dL (31-37) L Red Cell Distribution Width 21.4 % (11.5-14.5) H Platelet Count 314 x10^3/uL (140-400) Neutrophils (%) (Auto) 59 % (31-73) Lymphocytes (%) (Auto) 28 % (24-48) Monocytes (%) (Auto) 7 % (0-9) Eosinophils (%) (Auto) 6 % (0-3) H Basophils (%) (Auto) 1 % (0-3) Neutrophils # (Auto) 4.1 x10^3/uL (1.8-7.7) Lymphocytes # (Auto) 1.9 x10^3/uL (1.0-4.8) Monocytes # (Auto) 0.5 x10^3/uL (0.0-1.1) Eosinophils # (Auto) 0.4 x10^3/uL (0.0-0.7) Basophils # (Auto) 0.0 x10^3/uL (0.0-0.2) Platelet Estimate Adequate (ADEQUATE) Large Platelets Few Polychromasia Slight Hypochromasia Marked Basophilic Stippling Present Anisocytosis Mod Microcytosis Marked Macrocytosis Slight Tear Drop Cells Few Ovalocytes Mod RBC Morphology Bizarre Forms Few Sodium Level 143 mmol/L (136-145) Potassium Level 3.8 mmol/L (3.5-5.1) Chloride Level 107 mmol/L (98-107) Carbon Dioxide Level 25 mmol/L (21-32) Anion Gap 11 (6-14) Blood Urea Nitrogen 9 mg/dL (7-20) Creatinine 0.8 mg/dL (0.6-1.0) Estimated GFR (Cockcroft-Gault) 77.6 BUN/Creatinine Ratio 11 (6-20) Glucose Level 106 mg/dL (70-99) H Calcium Level 8.5 mg/dL (8.5-10.1) Total Bilirubin 0.4 mg/dL (0.2-1.0) Aspartate Amino Transferase (AST) 6 U/L (15-37) L Alanine Aminotransferase (ALT) 16 U/L (14-59) Alkaline Phosphatase 79 U/L (46-116) Total Protein 7.6 g/dL (6.4-8.2) Albumin 4.3 g/dL (3.4-5.0) Albumin/Globulin Ratio 1.3 (1.0-1.7) Test 08/16/20 05:00 White Blood Count 7.7 x10^3/uL (4.0-11.0) Red Blood Count 5.25 x10^6/uL (3.50-5.40) Hemoglobin 8.2 g/dL (12.0-15.5) L Hematocrit 29.0 % (36.0-47.0) L Mean Corpuscular Volume 55 fL (79-100) #L Mean Corpuscular Hemoglobin 16 pg (25-35) L Mean Corpuscular Hemoglobin Concent 28 g/dL (31-37) L Red Cell Distribution Width 21.5 % (11.5-14.5) H Platelet Count 327 x10^3/uL (140-400) Neutrophils (%) (Auto) 59 % (31-73) Lymphocytes (%) (Auto) 29 % (24-48) Monocytes (%) (Auto) 7 % (0-9) Eosinophils (%) (Auto) 5 % (0-3) H Basophils (%) (Auto) 0 % (0-3) Neutrophils # (Auto) 4.5 x10^3/uL (1.8-7.7) Lymphocytes # (Auto) 2.2 x10^3/uL (1.0-4.8) Monocytes # (Auto) 0.5 x10^3/uL (0.0-1.1) Eosinophils # (Auto) 0.4 x10^3/uL (0.0-0.7) Basophils # (Auto) 0.0 x10^3/uL (0.0-0.2) Laboratory Tests 08/15/20 11:15 08/15/20 20:05 08/16/20 05:00 Laboratory Tests 08/15/20 11:15 Laboratory Tests 08/15/20 11:15 08/16/20 05:00 Physical Exam: GENERAL: No apparent distress. Alert and oriented. HEENT: Head normocephalic, atraumatic. NECK: Supple LUNGS: Clear to auscultation. HEART: RRR, S1, S2 present, pulses intact ABDOMEN: Soft, positive bowel sounds. EXTREMITIES: No cyanosis or edema. NEUROLOGIC: Normal speech, normal tone PSYCHIATRIC: Normal affect, normal mood. SKIN: No ulceration. Assessment & Plan: A/P 44y with anemia, menorrhagia, and fibroids 1.) Anemia Hgb 6.4 -> 8.2, s/p 1U pRBC. Anemia likely 2/2 menorrhagia based on pts hx. 2.) Menorrhagia reports a longstanding hx. Bleeding currently stopped. Pt should arrange for F/U with me at [facility] [place]. She can call [phone]. 3.) Fibroids - ~2 cm in size. 4.) Contraception BTL 5.) Will cont follow DAGO ADAN MD Aug 16, 2020 10:09
[2020-08-16 11:00] VITALS: BP 116/73
--- NOTE | 2020-08-16 14:13 | PDOC3 ---
Discharge Summary Date of Admission: Aug 15, 2020 Date of Discharge: Aug 16, 2020 Follow-Up: 3-5 days Admitting Diagnosis comment: HPI History of Present Illness History of Present Illness Patient is a 44-year-old female with past medical history uterine fibroids, dysfunctional uterine bleeding, who presents to the ED due to concerns of anemia. She was evaluated by a local clinic due to heavy bleeding last week. At that time labs reportedly showed hemoglobin 6.5 and hematocrit 24.8. Patient has heavy vaginal bleeding over several years. Her menstrual cycle began 08/12/2020 and she states she is still having vaginal bleeding. She denies any abdominal pain, nausea, or vomiting. Patient is Czech-speaking only. Will admit for further medical management. Past Medical History Past Medical History Dysfunctional uterine bleeding, uterine fibroids, anemia D/C MEDS SEE MAR D/C CONDITION GOOD SEE DR ANTIONETTE LAY IN CLINIC CONSULTS DR ADAN [place] [facility] DISCHARGE DX COMPLICATIONS NONE D/C HBG 8.2 Assessment/Plan Dysfunctional uterine bleeding, resolved - Acute on chronic blood loss anemia Uterine fibroids ON us 2 fibroids in the uterus, the largest measuring 2.3 cm. Plan: Packed red blood cells ordered in the ER. Will follow up on hemoglobin after transfusion and and transfuse as needed for hemoglobin <7. Consultations placed to SHIPPING PROCESSOR Supportive care Once stable she may discharge to follow-up outpatient with SHIPPING PROCESSOR FEN - Cardiac diet PPX - SCDs FULL CODE Dispo - inpatient for above Justifications for Admission Justifications for Admission Other Justification History of Present Illness History of Present Illness Identification/Chief Complaint Chief Complaint Anemia Source Source: Chart review, Patient History of Present Illness History of Present Illness Patient is a 44-year-old female with past medical history uterine fibroids, dysfunctional uterine bleeding, who presents to the ED due to concerns of anemia. She was evaluated by a local clinic due to heavy bleeding last week. At that time labs reportedly showed hemoglobin 6.5 and hematocrit 24.8. Patient has heavy vaginal bleeding over several years. Her menstrual cycle began 08/12/2020 and she states she is still having vaginal bleeding. She denies any abdominal pain, nausea, or vomiting. Patient is Czech-speaking only. Will admit for further medical management. Past Medical History Past Medical History Dysfunctional uterine bleeding, uterine fibroids, anemia Past Surgical History Past Surgical History Reviewed with patient but denies any surgical history Family History Family History Reviewed with patient but denies any significant family history Social History Smoke: No ALCOHOL: none Drugs: None Current Problem List Problem List Problems Medical Problems: (1) Anemia Status: Acute (2) Fibroids Status: Acute Current Medications Current Medications Current Medications Ondansetron HCl (Zofran) 4 mg PRN Q8HRS PRN IV NAUSEA/VOMITING; Start 08/15/20 at 13:00; Stop 08/16/20 at 12:59 Acetaminophen (Tylenol) 650 mg PRN Q4HRS PRN PO FEVER > 100.3'F; Start 08/15/20 at 13:00; Stop 08/16/20 at 12:59 Allergies Allergies: Coded Allergies: No Known Drug Allergies (Unverified , 08/15/20) ROS Review of System GENERAL: No history of weight change, weakness or fevers. SKIN: No bruising, hair changes or rashes. EYES: No blurred, double or loss of vision. NOSE AND THROAT: No history of nosebleeds, hoarseness or sore throat. HEART: Denies chest pain, denies palpitations. LUNGS: Denies cough, hemoptysis, wheezing or shortness of breath. GASTROINTESTINAL: Denies nausea, vomiting, abdominal pain. GENITOURINARY: Vaginal bleeding. Denies dysuria, frequency, urgency, hematuria. NEUROLOGIC: Denies history of numbness, tingling, tremor or weakness. PSYCHIATRIC: Denies anxiety, denies depression. ENDOCRINE: No history of heat or cold intolerance, polyuria or polydipsia. EXTREMITIES: Denies muscle weakness, joint pain, pain on walking or stiffness. 6-22 LESS BLEEDING D/W RN Dysfunctional uterine bleeding Acute on chronic blood loss anemia Uterine fibroids ON us 2 fibroids in the uterus, the largest measuring 2.3 cm. Vitals Vitals Vital Signs Date Time Temp Pulse Resp B/P (MAP) Pulse Ox O2 Delivery O2 Flow Rate FiO2 08/16/20 07:00 97.6 76 17 122/62 (82) 99 Room Air 97.6 Physical Exam General: Alert, Oriented X3, Cooperative, No acute distress Heart: Regular rate, Normal S1, Normal S2, No murmurs Lungs: Clear Abdomen: Normal bowel sounds, Soft, No tenderness, No hepatosplenomegaly, No masses Extremities: No clubbing, No cyanosis, No edema, Normal pulses, No tenderness/swelling Skin: No rashes, No breakdown Labs LABS PATIENT: CARRIE MCDOWELLACCOUNT: [id number] : 1975 LOCATION: ER AGE: 44 SEX: F EXAM STATUS: REG ER ORD. PHYSICIAN: PILLO GE APRN REASON: heavy vag bleeding PROCEDURE: PELVIS W/TV EXAMINATION: US PELVIS W/TV, 08/15/2020 10:53 AM CLINICAL INDICATION: Heavy vaginal TECHNIQUE: Grayscale, color and spectral Doppler ultrasound images of the pelvis via transabdominal and transvaginal approach. COMPARISON: None. FINDINGS: The uterus measures 11.1 x 5.7 x 5.3 cm and is retroverted. The endometrial stripe measures 10 mm in thickness, within normal limits in a premenopausal woman. There are at least 2 myometrial masses in the fundus consistent with fibroids, one measuring 2.3 x 1.9 x 1.6 cm and the other measuring 1.7 x 1.5 x 1.1 cm. The right ovary measures 2.8 x 1.3 x 1.3 cm. The left ovary measures 3.7 x 2.4 x 2.3 cm. There is normal ovarian blood flow bilaterally. There are anechoic physiologic cysts in the left ovary measuring up to 1.5 cm. No adnexal mass or free fluid. IMPRESSION: At least 2 fibroids in the uterus, the largest measuring 2.3 cm. Electronically signed by: Lucia Romero MD (08/15/2020 11:29 AM) [id number] DICTATED and SIGNED BY: LUCIA ROMERO MD DATE: 08/15/20 [id number] FINAL DIAGNOSIS Problems Medical Problems: (1) Anemia Status: Acute (2) Fibroids Status: Acute Brief Hospital Course Ms. Mcdowell is a 44 old [sex] who presented with [ ] CONDITION AT DISCHARGE: Improved Discharge Medications Current Medications Ondansetron HCl (Zofran) 4 mg PRN Q8HRS PRN IV NAUSEA/VOMITING; Start 08/15/20 at 13:00; Stop 08/16/20 at 09:09; Status DC Acetaminophen (Tylenol) 650 mg PRN Q4HRS PRN PO FEVER > 100.3'F; Start 08/15/20 at 13:00; Stop 08/16/20 at 12:59; Status DC Ondansetron HCl (Zofran) 4 mg PRN Q6HRS PRN IVP NAUSEA/VOMITING; Start 08/15/20 at 13:45 Al Hydroxide/Mg Hydroxide (Mylanta Plus Xs) 30 ml PRN Q3HRS PRN PO HEARTBURN / GAS; Start 08/15/20 at 13:45 Calcium Carbonate/ Glycine (Tums) 500 mg PRN Q3HRS PRN PO UPSET STOMACH; Start 08/15/20 at 13:45 Zolpidem Tartrate (Ambien) 5 mg PRN QHS PRN PO INSOMNIA, MAY REPEAT IN 1HR; Start 08/15/20 at 13:45 Morphine Sulfate (Morphine Sulfate) 2 mg PRN Q1HR PRN IV PAIN; Start 08/15/20 at 13:45 Acetaminophen (Tylenol) 650 mg PRN Q6HRS PRN PO Headaches, Temp > 101.5F; Start 08/15/20 at 13:45 Magnesium Hydroxide (Milk Of Magnesia) 2,400 mg PRN Q12HR PRN PO CONSTIPATION; Start 08/15/20 at 13:45 Bisacodyl (Dulcolax Supp) 10 mg PRN DAILY PRN [place] CONSTIPATION; Start 08/15/20 at 13:45 Medroxyprogesterone Acetate (Provera) 5 mg DAILY PO Last administered on 08/16/20at 10:35; Start 08/15/20 at 17:00 Vital Signs Vital Signs Date Time Temp Pulse Resp B/P (MAP) Pulse Ox O2 Delivery O2 Flow Rate FiO2 08/16/20 11:00 98.1 78 18 116/73 (87) 97 Room Air 98.1 Labs Laboratory Tests Test 08/15/20 11:03 08/15/20 11:11 08/15/20 11:15 08/15/20 20:05 Urine Collection Type Unknown Urine Color Yellow Urine Clarity Clear Urine pH 6.0 (<5.0-8.0) Urine Specific [place] 1.015 (1.000-1.030) Urine Protein Negative mg/dL (NEG-TRACE) Urine Glucose (UA) Negative mg/dL (NEG) Urine Ketones (Stick) Negative mg/dL (NEG) Urine Blood Large (NEG) Urine Nitrite Negative (NEG) Urine Bilirubin Negative (NEG) Urine Urobilinogen Dipstick 1.0 mg/dL (0.2 mg/dL) Urine Leukocyte Esterase Trace (NEG) Urine RBC Tntc /HPF (0-2) Urine WBC Occ /HPF (0-4) Urine Bacteria 0 /HPF (0-FEW) Bedside Urine HCG, Qualitative Hcg negative (Negative) White Blood Count 6.9 x10^3/uL (4.0-11.0) Red Blood Count 4.84 x10^6/uL (3.50-5.40) Hemoglobin 6.4 g/dL (12.0-15.5) 8.2 g/dL (12.0-15.5) Hematocrit 23.6 % (36.0-47.0) 28.3 % (36.0-47.0) Mean Corpuscular Volume 49 fL (79-100) Mean Corpuscular Hemoglobin 13 pg (25-35) Mean Corpuscular Hemoglobin Concent 27 g/dL (31-37) 29 g/dL (31-37) Red Cell Distribution Width 21.4 % (11.5-14.5) Platelet Count 314 x10^3/uL (140-400) Neutrophils (%) (Auto) 59 % (31-73) Lymphocytes (%) (Auto) 28 % (24-48) Monocytes (%) (Auto) 7 % (0-9) Eosinophils (%) (Auto) 6 % (0-3) Basophils (%) (Auto) 1 % (0-3) Neutrophils # (Auto) 4.1 x10^3/uL (1.8-7.7) Lymphocytes # (Auto) 1.9 x10^3/uL (1.0-4.8) Monocytes # (Auto) 0.5 x10^3/uL (0.0-1.1) Eosinophils # (Auto) 0.4 x10^3/uL (0.0-0.7) Basophils # (Auto) 0.0 x10^3/uL (0.0-0.2) Platelet Estimate Adequate (ADEQUATE) Large Platelets Few Polychromasia Slight Hypochromasia Marked Basophilic Stippling Present Anisocytosis Mod Microcytosis Marked Macrocytosis Slight Tear Drop Cells Few Ovalocytes Mod RBC Morphology Bizarre Forms Few Sodium Level 143 mmol/L (136-145) Potassium Level 3.8 mmol/L (3.5-5.1) Chloride Level 107 mmol/L (98-107) Carbon Dioxide Level 25 mmol/L (21-32) Anion Gap 11 (6-14) Blood Urea Nitrogen 9 mg/dL (7-20) Creatinine 0.8 mg/dL (0.6-1.0) Estimated GFR (Cockcroft-Gault) 77.6 BUN/Creatinine Ratio 11 (6-20) Glucose Level 106 mg/dL (70-99) Calcium Level 8.5 mg/dL (8.5-10.1) Total Bilirubin 0.4 mg/dL (0.2-1.0) Aspartate Amino Transf (AST/SGOT) 6 U/L (15-37) Alanine Aminotransferase (ALT/SGPT) 16 U/L (14-59) Alkaline Phosphatase 79 U/L (46-116) Total Protein 7.6 g/dL (6.4-8.2) Albumin 4.3 g/dL (3.4-5.0) Albumin/Globulin Ratio 1.3 (1.0-1.7) Test 08/16/20 05:00 White Blood Count 7.7 x10^3/uL (4.0-11.0) Red Blood Count 5.25 x10^6/uL (3.50-5.40) Hemoglobin 8.2 g/dL (12.0-15.5) Hematocrit 29.0 % (36.0-47.0) Mean Corpuscular Volume 55 fL (79-100) Mean Corpuscular Hemoglobin 16 pg (25-35) Mean Corpuscular Hemoglobin Concent 28 g/dL (31-37) Red Cell Distribution Width 21.5 % (11.5-14.5) Platelet Count 327 x10^3/uL (140-400) Neutrophils (%) (Auto) 59 % (31-73) Lymphocytes (%) (Auto) 29 % (24-48) Monocytes (%) (Auto) 7 % (0-9) Eosinophils (%) (Auto) 5 % (0-3) Basophils (%) (Auto) 0 % (0-3) Neutrophils # (Auto) 4.5 x10^3/uL (1.8-7.7) Lymphocytes # (Auto) 2.2 x10^3/uL (1.0-4.8) Monocytes # (Auto) 0.5 x10^3/uL (0.0-1.1) Eosinophils # (Auto) 0.4 x10^3/uL (0.0-0.7) Basophils # (Auto) 0.0 x10^3/uL (0.0-0.2) Laboratory Tests Test 08/15/20 20:05 08/16/20 05:00 Hemoglobin 8.2 g/dL (12.0-15.5) 8.2 g/dL (12.0-15.5) Hematocrit 28.3 % (36.0-47.0) 29.0 % (36.0-47.0) Mean Corpuscular Hemoglobin Concent 29 g/dL (31-37) 28 g/dL (31-37) White Blood Count 7.7 x10^3/uL (4.0-11.0) Red Blood Count 5.25 x10^6/uL (3.50-5.40) Mean Corpuscular Volume 55 fL (79-100) Mean Corpuscular Hemoglobin 16 pg (25-35) Red Cell Distribution Width 21.5 % (11.5-14.5) Platelet Count 327 x10^3/uL (140-400) Neutrophils (%) (Auto) 59 % (31-73) Lymphocytes (%) (Auto) 29 % (24-48) Monocytes (%) (Auto) 7 % (0-9) Eosinophils (%) (Auto) 5 % (0-3) Basophils (%) (Auto) 0 % (0-3) Neutrophils # (Auto) 4.5 x10^3/uL (1.8-7.7) Lymphocytes # (Auto) 2.2 x10^3/uL (1.0-4.8) Monocytes # (Auto) 0.5 x10^3/uL (0.0-1.1) Eosinophils # (Auto) 0.4 x10^3/uL (0.0-0.7) Basophils # (Auto) 0.0 x10^3/uL (0.0-0.2) Allergies Allergies Coded Allergies Type Severity Reaction Last Updated Verified No Known Drug Allergies 08/15/20 No Disposition/Orders: D/C to Home Justicifation of Admission Dx: Justifications for Admission: Justification of Admission Dx: Yes JEMAL SHARP MD Aug 16, 2020 14:13
[2020-08-16] MEDS ORDERED: MEDR2.5T28 PO (14:14)
[2020-08-16] MEDS ORDERED: ACET325T21 PO (14:14)
--- NOTE | 2020-08-16 14:15 | DISCH ---
DISCHARGE INSTRUCTIONS Condition on Discharge Condition on Discharge: Stable Activity After Discharge Activity Instructions for Disc: Resume previous activity Lifting Instructions after Dis: No heavy lifting, No pulling or pushing Driving Instructions after Dis: Do not drive today Diet after Discharge Diet after Discharge: Regular Liquid Texture: Thin Liquid Checks after Discharge Checks after discharge: Check blood press - daily Contacting the after DC Call your doctor for: If your condition worsens Follow-Up Follow up with: SEE DR ADAN IN 7 DAYS Treatment/Equipment after DC Adaptive Equipment Issued: None JEMAL SHARP MD Aug 16, 2020 14:15
[2020-08-16 15:00] VITALS: BP 133/79
--- NOTE | 2020-08-16 15:01 | NUR ---
SW following. Discussed with RN, pt from home with family, room air, regular diet. Discharge order for home with self care. Med Assist following for self pay status.
--- NOTE | 2020-08-16 19:31 | NUR ---
Discharge Note: CARRIE BOB [address] [place] [address] Discharge instructions and discharge home medications reviewed with Patient and a copy given. All questions have been answered and understanding verbalized. The following instructions and handouts were given: Diet, activity, medication list and follow up instructions provided to patient. Discontinued lines and drains: Peripheral IV discontinued and cathetr intact. Patient discharged to Home or Self Care with Family Member via Ambulated
== END 2020-08-16 16:16 | disposition home or self-care (01) | DRG 760 ==
LOC: ER 10:11 → ED HOLD 12:32 → 4 NORTH 16:47
PROVIDERS: ADMIT Family Medicine; ATTEND Family Medicine
PROC: 30233N1 Transfusion of Nonautologous Red Blood Cells into Peripheral Vein, Percutaneous Approach (ICD-10-PCS; principal; 2020-08-15)
DX: N93.8 Other specified abnormal uterine and vaginal bleeding (principal); D62 Acute posthemorrhagic anemia; N92.0 Excessive and frequent menstruation with regular cycle; D25.9 Leiomyoma of uterus, unspecified; Z82.5 Family history of asthma and other chronic lower respiratory diseases
CPT/HCPCS: 36415; 36430; 76830; 76856; 80053; 81001; 81025; 85014; 85018; 85025; 86850; 86900; 86901; 86920; 87086; P9016; 99285-25; G0378

== ENCOUNTER 2020-10-31 19:40 | Emergency (ER) | payer SELFPAY ==
[~2020-10-31] VITALS: Ht 162.6 cm; Wt 59.0 kg
[~2020-10-31 19:40] MED LIST: ACET325T21 PO; MEDR2.5T28 PO
--- NOTE | 2020-10-31 21:18 | PHYS DOC ---
Past Medical History Past Medical History: No Pertinent History Past Surgical History: No Surgical History Smoking Status: Never Smoker Alcohol Use: None General Adult EDM: Chief Complaint: VAGINAL PROBLEM HPI: HPI: Patient is a 45 year old female who presents with heavy vaginal bleeding going through a pad every hour and a half with large clots. Patient states she had this problem back in July and needed a blood transfusion. She states in August she had a very light period and then September she had no period and then this month she started an 8 days ago with heavy bleeding. She states that she had ovarian cysts before in the past. She is having lower abdominal cramping. Denies dizziness, nausea, vomiting, diarrhea, fever, urinary symptoms, cough, shortness of breath, headache, numbness or tingling. History of anemia, ovarian cysts, tubal ligation. Review of Systems: Review of Systems: Constitutional: Denies fever or chills. [] Eyes: Denies change in visual acuity. [] HENT: Denies nasal congestion or sore throat. [] Respiratory: Denies cough or shortness of breath. [] Cardiovascular: Denies chest pain or edema. [] GI: + abdominal pain, denies nausea, vomiting, bloody stools or diarrhea. [] : Denies dysuria. + Vaginal bleeding [] Musculoskeletal: Denies back pain or joint pain. [] Integument: Denies rash. [] Neurologic: Denies headache, focal weakness or sensory changes. [] Endocrine: Denies polyuria or polydipsia. [] Lymphatic: Denies swollen glands. [] Psychiatric: Denies depression or anxiety. [] Heart Score: C/O Chest Pain: No Risk Factors: Risk Factors: DM, Current or recent (<one month) smoker, HTN, HLP, family history of CAD, obesity. Risk Scores: Score 0 - 3: 2.5% MACE over next 6 weeks - Discharge Home Score 4 - 6: 20.3% MACE over next 6 weeks - Admit for Clinical Observation Score 7 - 10: 72.7% MACE over next 6 weeks - Early Invasive Strategies Allergies: Allergies: Allergies Coded Allergies Type Severity Reaction Last Updated Verified No Known Drug Allergies 10/31/20 No Physical Exam: PE: Constitutional: Well developed, well nourished, no acute distress, non-toxic appearance. [] HENT: Normocephalic, atraumatic, bilateral external ears normal, oropharynx [address], no oral exudates, nose normal. [] Eyes: PERRLA, EOMI, conjunctiva normal, no discharge. [] Neck: Normal range of motion, no tenderness, supple, no stridor. [] Cardiovascular:Heart rate regular rhythm, no murmur [] Lungs & Thorax: Bilateral breath sounds clear to auscultation [] Abdomen: Bowel sounds normal, soft, no tenderness, no masses, no pulsatile masses. Vaginal bleeding [] Skin: Warm, dry, no erythema, no rash. [] Back: No tenderness, no CVA tenderness. [] Extremities: No tenderness, no cyanosis, no clubbing, ROM intact, no edema. [] Neurologic: Alert and oriented X 3, normal motor function, normal sensory function, no focal deficits noted. [] Psychologic: Affect normal, judgement normal, mood normal. [] Current Patient Data: Vital Signs: Vital Signs Date Time Temp Pulse Resp B/P (MAP) Pulse Ox O2 Delivery O2 Flow Rate FiO2 10/31/20 19:49 98.1 83 18 133/87 (97) 100 Room Air 98.1 EKG: EKG: [] Radiology/Procedures: Radiology/Procedures: [] Impression: [facility] [address] [place], [place] [id number] IMAGING REPORT Signed PATIENT: CARRIE BOBACCOUNT: [id number] : 1975 LOCATION: ER AGE: 45 SEX: F EXAM STATUS: REG ER ORD. PHYSICIAN: JALEN ALBERT APRN REASON: HEAVY VAGINAL BLEEDING WITH PAIN PROCEDURE: PELVIS COMPLETE EXAM: ULTRASOUND PELVIS INDICATION: Reason: HEAVY VAGINAL BLEEDING WITH PAIN / Spl. Instructions: / History: . COMPARISON: None available. TECHNIQUE: Transabdominal and transvaginal sonography was performed. FINDINGS: Uterus measures 8.7 x 6.8 x 5.4 cm. Endometrium is 9 mm in thickness. Numerous uterine fibroids noted, largest measuring 2.7 cm Right ovary measures 2.6 x 1.8 x 1.4 cm. Left ovary measures 4.9 x 4.1 x 2.2 cm. Cyst in the left ovary which measures up to 4.0 cm. Vascular flow identified in the ovaries bilaterally. IMPRESSION: 1. Endometrium is 9 mm in thickness which is within normal limits for premenopausal female. 2. Uterine fibroids noted. Difficult to exclude submucosal component. Nonemergent pelvic MRI can better evaluate 3. Normal sonographic appearance of the ovaries without evidence of torsion. Electronically signed by: Glenn Iverson MD (10/31/2020 10:18 PM) [facility] DICTATED and SIGNED BY: GLENN IVERSON MD DATE: 10/31/20 [id number] 0 Course & Med Decision Making: Course & Med Decision Making Pertinent Labs and Imaging studies reviewed. (See chart for details) See HPI. Alert and oriented x4. Ambulatory steady gait. Speaks in full clear sentences. Hemoglobin 10.9. Ultrasound shows uterine fibroids. Negative . Vital signs are stable. Patient is going through 1 pad every hour and a half. She is educated to come back if she is going through more than 1 pad an hour. Pelvic Exam: Promotions Officer present Abdomen: Nontender External Genitalia: Normal Skin Speculum: Normal vaginal mucosa, bloody cervical discharge Bimanual: No adnexal masses or tenderness, No CMT [] Dragon Disclaimer: Dragon Disclaimer: This electronic medical record was generated, in whole or in part, using a voice recognition dictation system. Departure Departure Impression: Primary Impression: Dysfunctional uterine bleeding Additional Impression: Fibroids Disposition: 01 HOME / SELF CARE / HOMELESS Condition: STABLE Referrals: NO PCP (PCP) DAGO ADAN MD Patient Instructions: Uterine Bleeding, Dysfunctional, Uterine Fibroid, [id number] Additional Instructions: If you begin going through more than 1 pad an hour return to the emergency room. Drink plenty of fluids. Tomorrow call a polymerization supervisor of your choice for a close follow-up appointment. It is important that you follow-up with a polymerization supervisor. I have also referred you to a polymerization supervisor. Take Tylenol or ibuprofen for your pain. JALEN ALBERT ENGINE ROOM OPERATOR Oct 31, 2020 21:18
[2020-10-31 21:28] LABS: BASO # 0.1 x10^3/uL (0.0-0.2); BASO % 0 % (0-3); EOS # 0.4 x10^3/uL (0.0-0.7); EOS % 3 % (0-3); HEMATOCRIT 33.8 % (36.0-47.0); HEMOGLOBIN 10.9 g/dL (12.0-15.5); LYMPH # 4.5 x10^3/uL (1.0-4.8); LYMPH % 31 % (24-48); MEAN CORPUSCULAR HEMOGLOBIN 21 pg (25-35); MEAN CORPUSCULAR HGB CONC 32 g/dL (31-37); MEAN CORPUSCULAR VOLUME 64 fL (79-100); MONO # 0.8 x10^3/uL (0.0-1.1); MONO % 5 % (0-9); NEUT % 61 % (31-73); PLATELET COUNT 284 x10^3/uL (140-400); RED BLOOD COUNT 5.27 x10^6/uL (3.50-5.40); RED CELL DISTRIBUTION WIDTH 26.8 % (11.5-14.5); WHITE BLOOD COUNT 14.8 x10^3/uL (4.0-11.0)
[2020-10-31 21:40] LABS: CREATININE 0.8 mg/dL (0.6-1.0); GFR 77.2; POTASSIUM 3.7 mmol/L (3.5-5.1)
[2020-10-31 21:45] LABS: ALBUMIN 3.9 g/dL (3.4-5.0); TOTAL BILIRUBIN 0.2 mg/dL (0.2-1.0)
[2020-10-31] MEDS ORDERED: IV NORMAL SALINE 1000ML BAG 1,000 ML IV ONE (22:00)
[2020-10-31] MEDS ORDERED: KETOROLAC 30 MG/ML VIAL. IVP ONE (22:00)
--- NOTE | 2020-10-31 22:21 | RAD ---
EXAM: ULTRASOUND PELVIS INDICATION: Reason: HEAVY VAGINAL BLEEDING WITH PAIN / Spl. Instructions: / History: . COMPARISON: None available. TECHNIQUE: Transabdominal and transvaginal sonography was performed. FINDINGS: Uterus measures 8.7 x 6.8 x 5.4 cm. Endometrium is 9 mm in thickness. Numerous uterine fibroids noted , largest measuring 2.7 cm Right ovary measures 2.6 x 1.8 x 1.4 cm. Left ovary measures 4.9 x 4.1 x 2.2 cm. Cyst in the left ovary which measures up to 4.0 cm. Vascular flow identified in the ovaries bilaterally. IMPRESSION: 1. Endometrium is 9 mm in thickness which is within normal limits for premenopausal female. 2. Uterine fibroids noted. Difficult to exclude submucosal component. Nonemergent pelvic MRI can bet ter evaluate 3. Normal sonographic appearance of the ovaries without evidence of torsion. Electronically signed by: Glenn Monzon MD (10/31/2020 10:18 PM) [facility]
[2020-10-31 22:54] LABS: BILIRUBIN,URINE NEGATIVE (NEG); CLARITY,URINE CLEAR; COLOR,URINE YELLOW; NITRITE,URINE NEGATIVE (NEG); PH,URINE 5.5 (<5.0-8.0); PROTEIN,URINE NEGATIVE (NEG-TRACE)
[2020-10-31 23:15] LABS: BACTERIA,URINE 0 /HPF (0-FEW); RBC,URINE 20-40 /HPF (0-2); WBC,URINE OCC /HPF (0-4)
[2020-10-31 23:44] LABS: ANISOCYTOSIS MOD; HYPOCHROMIA MARKED; MICROCYTOSIS MARKED; PLT ESTIMATE ADEQUATE (ADEQUATE); POLYCHROMASIA SLIGHT
[2020-11-01 00:03] VITALS: BP 143/76
[2020-11-03 15:29] LABS: GC PROBE Negative (Negative)
== END 2020-11-01 00:10 | disposition home or self-care (01) ==
LOC: ER 19:40
DX: D25.9 Leiomyoma of uterus, unspecified (principal); N93.8 Other specified abnormal uterine and vaginal bleeding
CPT/HCPCS: 76856; 80053; 81001; 84702; 85025; 87086; 87491; 87591; 96361; 96374; 99285; J1885; J7030; Q0111

== ENCOUNTER → 2021-07-07 | Outpatient (CLI) | payer SELFPAY ==
[~2021-07-07] MED LIST changes: +IBUP-1060 PO; +OXYC1TAB15 PO
== END ==
LOC: LAB 09:57
PROVIDERS: ATTEND Obstetrics & Gynecology
DX: Z01.812 Encounter for preprocedural laboratory examination (principal); Z20.822 Contact with and (suspected) exposure to COVID-19; N92.0 Excessive and frequent menstruation with regular cycle
CPT/HCPCS: U0003

== ENCOUNTER → 2021-07-11 | Day surgery (SDC) | payer SELFPAY ==
[~2021-07-11] VITALS: Ht 154.9 cm; Wt 60.1 kg
[~2021-07-11] MED LIST changes: +DEXAMETHASONE SOD PHOS 4 MG/ML VIAL ONE; +HYDROmorphone 2 MG/ML INJ. IVP PRN; +IV RINGERS,LACTATED 1000ML 1,000 ML IV SCH; +LIDOCAINE 4% KIT 4 ML SOLUTION. TP ONE; +MIDAZOLAM HCL/PF 2 MG/2 ML VIAL. ONE; +MORPHINE SULFATE 2 MG/ML INJ. IVP PRN; +ONDANSETRON PF 4 MG/2 ML VIAL. ONE; +PROCHLORPERAZINE 10 MG/2 ML VIAL. IVP PRN; +PROCHLORPERAZINE 10 MG/2 ML VIAL. ONE; +PROPOFOL 50 ML IV ONE; +SEVOFLURANE 61 TO 120 MINUTES. IH ONE; +fentaNYL PF VIAL 100 MCG/2 ML VIAL IVP PRN; +fentaNYL PF VIAL 100 MCG/2 ML VIAL ONE; +oxyCODONE/APAP 5/325 1 TAB TABLET PO ONE
[2021-07-11 09:24] VITALS: BP 148/77
[2021-07-11 09:51] LABS: BASO % 0 % (0-3); EOS # 0.5 x10^3/uL (0.0-0.7); EOS % 7 % (0-3); HEMATOCRIT 31.3 % (36.0-47.0); HEMOGLOBIN 9.8 g/dL (12.0-15.5); LYMPH # 2.1 x10^3/uL (1.0-4.8); LYMPH % 32 % (24-48); MEAN CORPUSCULAR HEMOGLOBIN 21 pg (25-35); MEAN CORPUSCULAR HGB CONC 31 g/dL (31-37); MEAN CORPUSCULAR VOLUME 66 fL (79-100); MONO # 0.5 x10^3/uL (0.0-1.1); MONO % 8 % (0-9); NEUT # 3.5 x10^3/uL (1.8-7.7); NEUT % 53 % (31-73); PLATELET COUNT 305 x10^3/uL (140-400); RED BLOOD COUNT 4.73 x10^6/uL (3.50-5.40); RED CELL DISTRIBUTION WIDTH 17.6 % (11.5-14.5); WHITE BLOOD COUNT 6.6 x10^3/uL (4.0-11.0)
[2021-07-11 10:45] LABS: ANISOCYTOSIS SLIGHT; PLT ESTIMATE ADEQUATE (ADEQUATE)
--- NOTE | 2021-07-11 11:16 | PDOC1 ---
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 The pt was seen on 06/05/21 for eval and tx of fibroids. The pt was seen in the hospital a little less than a year ago (08/15/20) for dizziness and heavy bleeding for a wk. The pt went to the [email or web address] who sent her to the hospital after she was found to have a low Hgb. She reports heavy periods for yrs. She has never attempted any tx in the past. She also states that she often has nausea and HAs with her cycles. In the ER a her Hgb returned at 6.4. She underwent an u/s revealing the following: The uterus measures 11.1 x 5.7 x 5.3 cm and is retroverted. The endometrial stripe measures 10 mm in thickness, within normal limits in a premenopausal woman. There are at least 2 myometrial masses in the fundus consistent with fibroids, one measuring 2.3 x 1.9 x 1.6 cm and the other measuring 1.7 x 1.5 x 1.1 cm. The pt was asked why she did not follow prior to this visit. She states that her periods had improved after the hospitalization. In May she bled for 15 days. Due to this and heavy period in April she decided to make the appt. She was on OCPs from Dec to Feb. While she was on OCPs she her bleeding was nml. She was not interested in being on OCP long-term. Prior to starting the OCPs her PCP Dr. Desirae Ramirez performed an EMB on 12/09/20. The EMB revealed benign polyps. The pt states that she was told that we could remove the "cysts". Explained that since the polyps were benign no intervention was required. Explained that if she was to have surgery she should chose something that will address her bleeding. Discussed ablation vs ablation. Explained that her uterus was a little on the larger side and with the fibroids an ablation may be less effective. Even with the previous mention that there was a good chance that it would be improve her bleeding. The pt ultimately desired to try an ablation. 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 H/o BTL SH: no tob, no EtOH FH: noncontributory Social History: ALCOHOL: none Drugs: None Medications: Meds: Current Medications Medications (Trade) Dose Ordered Sig/Gema Route PRN Reason Start Time Stop Time Status Last Admin Dose Admin Ringer's Solution 1,000 ml @ 30 mls/hr Q24H IV 07/11/21 06:00 07/11/21 17:59 07/11/21 09:38 Allergies: Coded Allergies: No Known Drug Allergies (Unverified , 10/31/20) Physical Exam: Vital Signs: Vital Signs Date Time Temp Pulse Resp B/P (MAP) Pulse Ox O2 Delivery O2 Flow Rate FiO2 07/11/21 09:26 97.6 78 18 148/77 100 Room Air 97.6 PE: GENERAL: No apparent distress. Alert and oriented. HEENT: Head normocephalic, atraumatic. NECK: Supple LUNGS: Clear to auscultation. HEART: RRR, S1, S2 present, pulses intact ABDOMEN: Soft, positive bowel sounds. EXTREMITIES: No cyanosis or edema. NEUROLOGIC: Normal speech, normal tone PSYCHIATRIC: Normal affect, normal mood. SKIN: No ulceration. Labs: Laboratory Tests Test 07/11/21 09:00 07/11/21 09:03 07/11/21 09:25 POC SARS CoV-2 Antigen Negative (NEGATIVE) POC Urine HCG, Qualitative Hcg negative (Negative) White Blood Count 6.6 x10^3/uL (4.0-11.0) Red Blood Count 4.73 x10^6/uL (3.50-5.40) Hemoglobin 9.8 g/dL (12.0-15.5) L Hematocrit 31.3 % (36.0-47.0) L Mean Corpuscular Volume 66 fL (79-100) L Mean Corpuscular Hemoglobin 21 pg (25-35) L Mean Corpuscular Hemoglobin Concent 31 g/dL (31-37) Red Cell Distribution Width 17.6 % (11.5-14.5) H Platelet Count 305 x10^3/uL (140-400) Neutrophils (%) (Auto) 53 % (31-73) Lymphocytes (%) (Auto) 32 % (24-48) Monocytes (%) (Auto) 8 % (0-9) Eosinophils (%) (Auto) 7 % (0-3) H Basophils (%) (Auto) 0 % (0-3) Neutrophils # (Auto) 3.5 x10^3/uL (1.8-7.7) Lymphocytes # (Auto) 2.1 x10^3/uL (1.0-4.8) Monocytes # (Auto) 0.5 x10^3/uL (0.0-1.1) Eosinophils # (Auto) 0.5 x10^3/uL (0.0-0.7) Basophils # (Auto) 0.0 x10^3/uL (0.0-0.2) Platelet Estimate Adequate (ADEQUATE) Anisocytosis Slight Laboratory Tests 07/11/21 09:25 Laboratory Tests 07/11/21 09:25 Assessment & Plan: A/P 44y with anemia, menorrhagia, and fibroids 1.) Anemia - hospitalized 08/15/20 for transfusion (1U pRBC) 2.) Menorrhagia - reports a longstanding hx. Desires Ablation. Prices given 3.) Fibroids - ~2 cm in size (fundal so hopefully will not distort the endometrium making ablation more effective) 4.) Contraception BTL DAGO ADAN MD July 11, 2021 11:16
[2021-07-11 13:35] VITALS: BP 122/72
--- NOTE | 2021-07-11 13:56 | PDOC4 ---
OPERATIVE NOTE: PreOp Dx: 1.) Anemia, 2.) Menorrhagia, 3.) Fibroids PostOp Dx: same, endometrial polyp Procedure: H/S, Myosure, Novasure Surgeon: Lionel Adan Anesthesia: GETA EBL: 10 cc Fluids: 600 cc Findings: endometrial polyp Complications: none Path: Endometrial polyp DAGO ADAN MD July 11, 2021 13:56
--- NOTE | 2021-07-12 07:18 | OP ---
DATE OF SURGERY: 07/11/2021 PREOPERATIVE DIAGNOSES: 1. Anemia. 2. Menorrhagia. 3. Fibroids. POSTOPERATIVE DIAGNOSES: 1. Anemia. 2. Menorrhagia. 3. Fibroids. 4. Endometrial polyp. PROCEDURES: Hysteroscopy, MyoSure and NovaSure. SURGEON: Ashok Goodman MD ANESTHESIA: General endotracheal intubation. ESTIMATED BLOOD LOSS: 10 mL. FLUIDS: 600 mL. FINDINGS: Endometrial polyp. COMPLICATIONS: None. PATHOLOGY: Endometrial polyp. DESCRIPTION OF PROCEDURE: The patient was taken to the operating room where LMA was placed without difficulty. The patient was prepped and draped in a normal sterile fashion. A speculum was placed in the patient's vagina to visualize the cervix. Anterior lip of the cervix was then grasped with a single tooth tenaculum. The cervix was sounded and found to be approximately 5 cm. The sound was placed at the fundus, which ended up being approximately 11 cm. The cervix was then dilated to allow for hysteroscope to be placed. The hysteroscope was placed into the endometrial cavity revealing an endometrial polyp along the anterior portion of the uterus. It appeared benign. At that point, the MyoSure device was used to remove the polyp. Once this was accomplished, the MyoSure was removed and the NovaSure device was then placed and opened. The width was found to be 4.5 cm. This measurement along with the previous mentioned length of 6 cm were then placed into the NovaSure tower. At that point, NovaSure was activated. After a minute and 37 seconds, the ablation had been complete. At that point, the NovaSure was removed. The hysteroscope was then placed to reveal good ablation tissue in all aspects of the endometrial cavity. At that point, the hysteroscope was removed as well as the tenaculum. There was noted to be 180 mL of deficit. There was minimal bleeding at the vacuum site. Good hemostasis was noted. At that point, the patient was brought to the recovery room in stable condition. ORIANA DR: Gilmer TID: [id number] JOEL
--- NOTE | 2021-07-12 15:08 | PATHOLOGY ---
[facility] Accession Number: [id number] . 01 Material submitted: . endometrium - ENDOMETRIAL CURETTINGS . 01 Clinical history: . IRREGULAR BLEEDING MENORRHAGIA . 02 Diagnosis: Endometrial curettings: - Endometrial polyp, multiple fragments. - Late secretory endometrium. (JPM:estefani; 07/12/2021) S 07/12/2021 1308 Local . 02 Comment: Sections of the endometrial curettings reveal multiple segments of endometrial polyp. There are also multiple segments of focally polypoid late secretory endometrium. There are also a few segments of myometrial tissue. There is no evidence of hyperplasia or malignancy. (JPM:estefani; 07/12/2021) . 02 Electronically signed: . Michael García MD, Pathologist NPI- [id number] . 01 Gross description: . The specimen is received in formalin, labeled "Jameslopez, Yary, endometrial curettings" and consists of multiple spaulding-red soft irregular tissues aggregating 4.3 x 3.8 x 0.3 cm which are filtered and submitted in toto in 5 cassettes. (COCOPAH; 07/11/2021) DKA/DKA 07/11/2021 1719 Local . 02 Pathologist provided ICD-10: N84.0 . 02 CPT . 456173 Specimen Comment: A courtesy copy of this report has been sent to [phone] Specimen Comment: Report sent to Performed at: 01 [facility] [address], [place] [id number] MD Qamar Huber MD Phone: [phone] Performed at: [address] [facility] [address] [id number] MD Michael García MD Phone: [phone]
== END | disposition home or self-care (01) ==
LOC: SURG 08:56
PROVIDERS: ATTEND Obstetrics & Gynecology
DX: N92.0 Excessive and frequent menstruation with regular cycle (principal); N84.0 Polyp of corpus uteri; D64.9 Anemia, unspecified; D25.9 Leiomyoma of uterus, unspecified; Z79.899 Other long term (current) drug therapy; Z98.890 Other specified postprocedural states
CPT/HCPCS: 31500; 36415; 58563; 81025; 85025; 86850; 86900; 86901; 88305; A4930; J1100; J2250; J2405; J2704; J3010; J0780